=== PATIENT | female | born 1975 | race Caucasian/White ===

== ENCOUNTER → 2018-01-02 08:10 | Outpatient (CLI) | payer BC, SELFPAY ==
--- NOTE | 2018-01-02 09:00 | US_ITS ---
US transvaginal HISTORY: ITS.REASON: check IUD position/cysts due to abdominal/pelvic ORDERING PHYSICIAN: Jairo Galvan MD PATIENT AGE: 42 years Comparison: None FINDINGS: The uterus measures 10 x 4 x 5 cm with a combined endometrial thickness of 4 mm. IUD is noted in the endometrium and appears in satisfactory position. No obvious uterine mass. The left ovary is 1.6 x 1 cm and has an unremarkable appearance. The right ovary is 2.5 x 2.2 cm and contains a 2 cm cyst. No cul-de-sac fluid. IMPRESSION: 1. IUD within the endometrial cavity 2. 2 cm right ovarian cyst
== END ==
PROVIDERS: Family Provider Internal Medicine; PCP Family Medicine; Visit Provider Nurse Practitioner Obstetrics & Gynecology
DX: R10.2 Pelvic and perineal pain (principal); R10.9 Unspecified abdominal pain; Z97.5 Presence of (intrauterine) contraceptive device
CPT/HCPCS: 76830

== ENCOUNTER → 2018-05-10 10:08 | Outpatient (CLI) | payer BC, SELFPAY ==
[2018-05-10 10:52] LABS: Basophils % 0.4 % (0.1-2.0); Eosinophils # 0.3 K/mm3 (0.0-0.4); Eosinophils % 4.2 % (0.1-12.0); Hematocrit 45.5 % (37.0-47.0); Hemoglobin 14.9 g/dL (12.2-16.2); Lymphocytes # 2.9 K/mm3 (0.7-4.5); Lymphocytes % 40.1 % (10-50); Mean Corpuscular HGB Conc 32.7 g/dL (31.8-35.4); Mean Corpuscular Hemoglobin 29.2 pg (27.0-31.2); Mean Corpuscular Volume 89.4 fl (81-99); Mean Platelet Volume 7.6 fl (7.4-10.4); Monocytes # 0.3 K/mm3 (0.1-1.0); Monocytes % 4.2 % (1.7-9.3); Neutrophils # 3.7 K/mm3 (1.8-7.8); Neutrophils % 51.2 % (37.0-80.0); Platelet Count 256 K/mm3 (142-424); Red Blood Count 5.09 M/mm3 (4.20-5.40); Red Cell Distribution Width 12.9 % (11.5-17.5); White Blood Count 7.2 K/mm3 (4.8-10.8)
[2018-05-10 12:47] LABS: HCG Qualitative, Serum Negative (Negative)
[2018-05-10 12:49] LABS: Alanine Aminotransferase 31 U/L (12-78); Albumin Level 3.5 gm/dL (3.4-5.0); Albumin/Globulin Ratio 1.2 (1.1-1.8); Alkaline Phosphatase 79 U/L (46-116); Aspartate Amino Transferase 9 U/L (15-37); Bilirubin,Total 0.5 mg/dL (0.2-1.0); Blood Urea Nitrogen 15 mg/dL (7-18); Calcium 8.3 mg/dL (8.5-10.1); Carbon Dioxide 27 mmol/L (21.0-32.0); Chloride 103 mmol/L (98-107); Creatinine,Serum 0.46 mg/dL (0.55-1.02); Estimated Glomerular Filt Rate 148 ml/min (>60); GFR (African American) 179 ML/MIN (>60); Globulin 2.9 gm/dl (1.3-3.2); Glucose 205 mg/dL (74-106); Sodium 139 mmol/L (136-145); Total Protein,Serum 6.4 gm/dL (6.4-8.2)
== END ==
PROVIDERS: Visit Provider Obstetrics & Gynecology
DX: Z01.818 Encounter for other preprocedural examination (principal); R10.2 Pelvic and perineal pain
CPT/HCPCS: 36415; 80053; 84703; 85025; 86850

== ENCOUNTER 2018-05-13 07:00 | Inpatient (IN) ==
--- NOTE | 2018-05-13 08:06 | Progress Note ---
[facility] Anesthesia Checklist - Structural Data Admitted From: Home Planned Operative Procedure/s: [facility] Consent for Planned Operative Procedure(s) Verified: Yes Verified Documents: Surgical Consent - Airway Assessment C-Spine Mobility Assessed: Yes TMJ Mobility Assessed: Yes Dentition: Good Dentition - Neurological Assessment Level of Consciousness: Awake, Alert, Appropriate - Anesthesia Plan Anesthesia Risk discussed: Yes Anesthesia Plan: Verified ASA Class: II Anesthesia Type: General [facility] History I have reviewed the patient's past medical history: Yes Medical History: Reports:: Diabetes Mellitus Type 2 Denies:: Anxiety, Cancer, Depression, Diabetes Mellitus Type 1, Hyperlipidemia, Hypertension, Internal Pacemaker, MRSA, Seizures Other Medical History: Denies: Blood Transfusion Reaction Laterality Cases: Right: Arthroscopy Knee, Carpal Tunnel Release Other Surgeries: Yes: . No: Pacemaker Amputation: No Fractures: No - *Social History Educational Level: Attended College Smoking Status: Never smoker Alcohol Intake: never Alcohol Intake Frequency:: holidays/special occasions only Substance Use Type: denies use Occupational Status: unemployed Household Members: family - Psychiatric History Expresses thoughts of harming self/others: None Suicide Plan Description: No Plan Pschychiatric History:: Denies:: Anxiety, Depression *Family Hx:: Diabetes, Stroke
--- NOTE | 2018-05-13 13:17 | Operative Note ---
Date of procedure: 05/13/18 Pre-op Diagnosis:: 1. Chronic pelvic pain 2. Severe dysmenorrhea 3. Enlarged uterus 4. Ovarian cyst 5. Previous x 2 [address] Post-op Diagnosis:: 1. Chronic pelvic pain 2. Severe dysmenorrhea 3. Enlarged uterus 4. Previous x 2 [address] 6. Dense abdominal/pelvic adhesions Procedure performed:: 1. Abdominal supracervical hysterectomy 2. Bilateral salpingectomy 3. Lysis of dense adhesions Surgeon:: Nila Cheema MD MATH COACH:: Other Anesthesia: GETA Estimated blood loss (mL): 250 Operative findings:: Grossly normal appearing uterus and ovaries bilaterally Moderate dense pelvic/abdominal adhesions Operative note:: The patient was taken to the operating room and general anesthesia was administered without difficulty. She was prepped and draped in the supine position. A Pfannenstiel skin incision was made approximately 2 cm above the pubic symphysis with a scalpel and carried down to the underlying layer of fascia. The fascia was incised in the midline and extended laterally sharply. The rectus muscles were sharply dissected off the fascia. There was a moderate amount of dense adhesions noted in this region and this dissection took approximately 10 minutes; dissection was performed without complication or bowel injury. The peritoneum was turned and sharply, with good visualization of the underlying structures, providing additional confirmation that dissection of fascia had not resulted in injury to other structures. The peritoneal incision was extended bluntly. A survey of the patient's pelvis and abdomen revealed a moderate amount of dense and filmy pelvic adhesion, extending between the uterus/adnexa, adnexa/lateral sidewalls, the omentum/uterus and the bladder/uterus. The ovaries appeared normal bilaterally; previously visualized ovarian cyst on pelvic ultrasound had resolved in the interval time. Approximately 25 minutes of time was spent in blunt & sharp dissection of adhesions in order to mobilize the anatomy sufficiently to safely place an abdominal retractor. At this time, the patient was placed in Trendelenburg and a Cochise retractor was placed in the abdomen; the bowel was packed with moist laparotomy sponges. A double tooth tenaculum was placed on the uterine fundus and the uterus was elevated out of the pelvis. No fibroids or other visible uterine lesions were noted. The round ligaments were identified and transected and suture-ligated. The anterior lip of the broad ligament was dissected medially on both sides. Approximately 20 minutes of sharp and blunt dissection of vesico-uterine peritoneal adhesions resulting from the patient's 2 previous c-sections. This lysis of adhesions was completed without visible injury to the bladder, and with minimal oozing from the exposed surface tissue. The posterior leaf of the broad ligament was dissected until the ureters were able to be identified on either side and noted to be free of the forthcoming adnexal pedicles. Infundibulopelvic ligaments were doubly clamped transected and suture ligated on either side, medial to ovaries for ovarian preservation, with excellent hemostasis noted. The fallopian tubes on either side were clamped transected and suture ligated and the specimens were set aside for pathology. The uterine arteries were skeletonized on either side, and were clamped, transected and suture ligated with excellent hemostasis. The bladder flap was further bluntly dissected off the lower uterine segment with excellent hemostasis and without injury to the bladder. The cardinal and uterosacral ligaments were clamped transected and suture ligated on both sides; this was taken down sequentially with 3 additional bites but due to thick adhesions deep in the pelvis and a concern for potential ureteral injury, a decision was made to proceed with amputation of the uterus and upper cervix at that level, after confirming a negative cervical cytology specimen had been obtained 2 months earlier. The uterus and upper cervix were removed abdominally and sent for pathology, along with the fallopian tubes. The string of the levonorgestrel IUD was visualized prolapsing from the excised surface of the cervix and was sent to pathology within the uterus. The cervical stump was oversewn with 0-Vicryl [id number] sutures and the lateral edges were transfixed to the ipsilateral cardinal and uterosacral ligaments. The remainder of the vaginal cuff was closed with 0 Vicryl interrupted sutures. The pelvis was copiously irrigated with warmed sterile water. The cervical stump and all pedicles was hemostatic. All pedicles were reexamined and remained hemostatic. All instruments were removed from the patient's abdomen. The peritoneum was closed with 2-0 Vicryl in a running fashion. Edenilson was placed over the bladder mucosa for oozing from the dissection of adhesions to the uterus. The fascia was closed with 0 Vicryl in a running fashion. The subcutaneous fat was reapproximated wtih 2-0 vicryl in interrupted fashion. The skin was closed with toy. The patient tolerat ed the procedure well; sponge/lap/needle and instrument counts were correct 2. She was taken to the recovery room awake in stable condition. Estimated blood loss: 250 cc. Total time spent in lysis of adhesions: 50 minutes Condition: stable Disposition: PACU Complications:: none
--- NOTE | 2018-05-13 13:37 | Progress Note ---
[facility] Anesthesia Record Part I Intake, IV Amount: 2,000 Estimated blood loss (mL): 250 Urine output (mL): 100 Blood Products used (#): none Blood Pressure: 86/44 SaO2: 96 Pulse Rate: 106 Respiratory Rate: 13 Temperature: 97.9 F Patient is:: Awake, Nasal O2, Stable Stable to PACU at:: 13:28
--- NOTE | 2018-05-13 13:38 | Progress Note ---
[facility] Anesthesia Record Part II Discharge Time: 13:58 Destination: Medical Surgical Department PACU nurse assessment reviewed?: Yes Patient Condition:: Good Anesthesia Complications:: None
[2018-05-14 06:22] LABS: Hematocrit 35.6 % (37.0-47.0); Hemoglobin 11.7 g/dL (12.2-16.2)
--- NOTE | 2018-05-14 10:46 | Pharmacy Consult Notes ---
[facility] Pharmacy VTE Monitoring - Patient Demographics Admission date: 05/14/18 Report Date: 05/14/18 Time: 10:40 Allergies/Adverse Reactions: Patient Allergies No Known Allergies Allergy (Unverified 05/13/18 13:35) Height: 1.68 m Weight: 86.183 kg - VTE Risk Labs: VTE Related Lab Results Hgb 11.7 g/dL (12.2-16.2) L 05/14/18 05:45 Hct 35.6 % (37.0-47.0) L 05/14/18 05:45 - Prophylaxis Types of VTE Prophylaxis: IPCS Knee High (SCUDS ORDERED) Location of Applied Device: Bilateral Lower Extremeties
--- NOTE | 2018-05-14 12:47 | Progress Note ---
Internal Medicine - PN: Subj *Date: 05/14/18 *Time: 12:43 Interval history: POD #1 abdominal supracervical hysterectomy, bilateral salpingectomy, JAYRO Doing well this am Ambulating and voiding without difficulty Tolerating clear liquid diet + flatus Poorly controlled insulin-dependent DM managed with Lantis, Victosa and prn Humalog at home Covering with SS insulin while admitted because patient does not follow the regimen prescribed to her at home Postop anemia asymptomatic; Hgb 14.9 at admission and 11.7 today (appropriate for intra-op EBL) Pain control sufficient with toradol and TAP block; has po percocet ordered but has declined this so far One dose of IV morphine given last pm Exam Vital signs and Labs for Last 24 Hours: Temp Pulse Resp BP Pulse Ox 98.4 F 76 20 100/49 L 96 05/14/18 08:29 05/14/18 08:29 05/14/18 08:29 05/14/18 08:29 05/14/18 08:29 Laboratory Results - last 24 hr 05/13/18 09:35: Urine Color Yellow, Urine Appearance Slightly cloudy, Urine pH 5.5, Ur Specific [place] >= 1.030, Urine Protein Negative, Urine Glucose (UA) Negative, Urine Ketones Negative, Urine Blood 3+, Urine Nitrate Positive, Urine Bilirubin Negative, Urine Urobilinogen 0.2, Ur Leukocyte Esterase 1+ A, Urine RBC 5-10, Urine WBC 3-5, Ur Squamous Epith Cells Occasional, Urine Bacteria 1+ 05/13/18 13:40: POC Glucose 211 H 05/13/18 14:15: POC Glucose 207 H 05/13/18 16:38: POC Glucose 235 H 05/13/18 21:37: POC Glucose 241 H 05/14/18 05:45: Hgb 11.7 L, Hct 35.6 L 05/14/18 05:45: Random Glucose 246 H 05/14/18 11:37: POC Glucose 311 H* I & O for Last 24 hours: Intake & Output 05/12/18 05/13/18 05/14/18 05/15/18 11:59 11:59 11:59 11:59 Intake Total 4440 / 4440 Output Total 1150 / 1150 Balance 3290 / 3290 Weight 190 lb Microbiology Reports for the Last 24 Hours: Microbiology 05/13/18 09:35 Urine,Catheterized Urine Culture - Preliminary Gram Negative Rods Narrative: CONSTITUTIONAL: no acute distress HEENT: mucous membranes moist PULMONARY: breathing unlabored without audible wheezes CV: no tachycardia or visible JVD; normal LE peripheral pulses ABD: soft, appropriately tender; no guarding SKIN: no visible rash or lesions; incision dressing dry/intact EXT: no edema LEs NEURO: alert/oriented, no altered mental status PSYCH: appropriate mood and demeanor without visible anxiety/depression Assessment and Plan (1) S/P abdominal supracervical subtotal hysterectomy Current visit: Yes Status: Acute Category: Surgical Code(s): Z90.711 - Acquired absence of uterus with remaining cervical stump (2) Pelvic pain Current visit: No Status: Acute Category: Medical Code(s): R10.2 - Pelvic and perineal pain (3) Severe dysmenorrhea Current visit: No Status: Acute Category: Medical Code(s): N94.6 - Dysmenorrhea, unspecified (4) Enlarged uterus Problem details: 10x4x5 Current visit: No Status: Acute Category: Medical Code(s): N85.2 - Hypertrophy of uterus (5) Ovarian cyst Current visit: No Status: Acute Qualifiers: Laterality: right Qualified Code(s): N83.201 - Unspecified ovarian cyst, right side Category: Medical Code(s): N83.209 - Unspecified ovarian cyst, unspecified side (6) Previous section Problem details: x1 Current visit: No Status: Acute Category: Surgical Code(s): Z98.891 - History of uterine scar from previous surgery (7) Pelvic adhesions Current visit: Yes Status: Acute Category: Medical Code(s): N73.6 - Female pelvic peritoneal adhesions (postinfective) (8) Diabetes mellitus with insulin therapy Current visit: Yes Status: Acute Category: Medical Code(s): E11.9 - Type 2 diabetes mellitus without complications; Z79.4 - skilled nursing (current) use of insulin (9) Anemia associated with acute blood loss Current visit: Yes Status: Acute Category: Medical Code(s): D62 - Acute posthemorrhagic anemia - Assessment and plan all Dx Assessment and Plan for all problems:: Routine postop care Advance to regular (diabetic) diet, po pain meds Continue SS insulin coverage for DM Asymptomatic mild anemia- no intervention needed Anticipate discharge tomorrow
--- NOTE | 2018-05-15 12:13 | Discharge Summary ---
General - General Admission date:: 05/13/18 Discharge date: 05/15/18 [facility] HPI: Admitted for surgical management of chronic pelvic pain with hysterectomy Postop course routine; progressed to ambulating, voiding and tolerating diet BS has been managed with SS insulin postop because patient does not follow set dosing of insulin as prescribed when she is home Hospital Course Hospital Course: as documented in HPI Objective Vital signs: Temp Pulse Resp BP Pulse Ox 98.0 F 86 16 87/46 L 94 L 05/15/18 08:37 05/15/18 08:37 05/15/18 08:37 05/15/18 08:37 05/15/18 08:37 Narrative: CONSTITUTIONAL: no acute distress HEENT: mucous membranes moist PULMONARY: breathing unlabored without audible wheezes CV: no tachycardia or visible JVD; normal LE peripheral pulses ABD: soft, NT/ND, no guarding SKIN: no visible rash or lesions; incision dry/intact EXT: 1+ edema LEs NEURO: alert/oriented, no altered mental status PSYCH: appropriate mood and demeanor without visible anxiety/depression Results Labs on day of discharge: Labs from last 24 hours 05/15/18 05/14/18 07:59 21:24 POC Glucose 296 H 332 H* DS: Diagnosis - Discharge Diagnosis (1) S/P abdominal supracervical subtotal hysterectomy Status: Acute (2) Pelvic pain Status: Acute (3) Severe dysmenorrhea Status: Acute (4) Enlarged uterus Status: Acute Problem details: 10x4x5 (5) Ovarian cyst Status: Acute (6) Previous section Status: Acute Problem details: x1 (7) Pelvic adhesions Status: Acute (8) Diabetes mellitus with insulin therapy Status: Acute (9) Anemia associated with acute blood loss Status: Acute Discharge Plan - Patient Discharge Instructions ACTIVITY: Limited activity DIET: advance to your usual diet Patient Instructions: Hysterectomy -- Open Surgery, Web-Based Program May Help Improve Diabetes Management, DI for Surgical Site Infection - Follow up Plan Follow up with: Nila Cheema MD [Staff Physician] - Disposition: Home, Self-Group Home Medications: Home Medications Medication Instructions Recorded Confirmed Type cetirizine 10 mg tablet 10 mg PO DAILY 02/04/18 05/13/18 History fluconazole 100 mg tablet 100 mg PO DAILY 7 Days #7 tab 02/04/18 05/13/18 History insulin glargine (U-100) 100 100 unit SUB-Q DAILY 30 Days #30 02/04/18 05/13/18 History unit/mL (3 mL) subcutaneous pen insulin lispro (U- 100) 100 100 units SUB-Q DAILY 25 Days #15 02/04/18 05/13/18 History unit/mL subcutaneous pen levonorgestrel 20 mcg/24 hr (5 20 mcg INTRAUTERI DAILY 02/04/18 05/13/18 History years) intrauterine device pen needle, diabetic 31 gauge x See Dose Instructions .ROUTE 02/04/18 05/13/18 History 11/07" .MEDSUPPLY 25 Days #100 each ranitidine 300 mg tablet 300 mg PO DAILY 30 Days #30 tab 02/04/18 05/13/18 History Linaclotide [Linzess] 145 mcg PO DAILY 05/10/18 05/13/18 History Prescriptions/Medication Reconciliation: New Ketorolac Tromethamine [Toradol 10mg tablet] 10 mg PO Q6H #30 tablet Oxycodone HCl [OxyIR 5mg tablet] 5 mg PO Q4HP PRN #30 tab PRN Reason: Severe Pain Continue pen needle, diabetic 31 gauge x 11/07" See Dose Instructions .ROUTE .MEDSUPPLY 25 Days #100 each insulin lispro (U- 100) 100 unit/mL subcutaneous pen 100 units SUB-Q DAILY 25 Days #15 ranitidine 300 mg tablet 300 mg PO DAILY 30 Days #30 tab cetirizine 10 mg tablet 10 mg PO DAILY insulin glargine (U-100) 100 unit/mL (3 mL) subcutaneous pen 100 unit SUB-Q DAILY 30 Days #30 fluconazole 100 mg tablet 100 mg PO DAILY 7 Days #7 tab Linaclotide [Linzess] 145 mcg PO DAILY Discontinued levonorgestrel 20 mcg/24 hr (5 years) intrauterine device 20 mcg INTRAUTERI DAILY
== END 2018-05-15 13:45 | disposition home or self-care (01) ==
LOC: OR 07:00 → OB 14:43
PROVIDERS: ADMIT Obstetrics & Gynecology; ATTEND Obstetrics & Gynecology
CPT/HCPCS: J2405

== ENCOUNTER → 2019-04-15 10:40 | Outpatient (CLI) | payer BC, SELFPAY | PROVIDERS: Visit Provider Obstetrics & Gynecology | DX: R39.89 Other symptoms and signs involving the genitourinary system (principal) ==

== ENCOUNTER → 2020-04-06 08:34 | Outpatient (CLI) | payer BC, SELFPAY ==
--- NOTE | 2020-04-06 09:09 | US_ITS ---
PROCEDURE: US ABDOMEN LIMITED CLINICAL INDICATION: ABD PAIN Epigastric pain with nausea COMPARISON: US GB US GALLBLADDER (ABD LTD) from 09/22/2014 FINDINGS: PANCREAS: Unremarkable. No obvious mass or abnormal fluid collection. No ductal dilatation LIVER: No focal liver lesions demonstrated. Homogeneous echogenicity. No intrahepatic biliary ductal dilatation evident. There is appropriate direction of blood flow within a non dilated portal vein RIGHT KIDNEY: Unremarkable. Normal size and echogenicity. No hydronephrosis GALLBLADDER: There are multiple gallstones present. No gallbladder wall thickening, pericholecystic fluid, or biliary dilatation is evident. IMPRESSION: Cholelithiasis otherwise negative. Dictated by: Hao Jasso MD 04/06/2020 12:47 Hao Jasso MD in [place] 04/06/2020 12:47
== END ==
PROVIDERS: PCP Family Medicine; Visit Provider Surgery
DX: R10.11 Right upper quadrant pain (principal)
CPT/HCPCS: 76705

== ENCOUNTER 2020-04-30 01:08 | Observation (INO) | payer BC, SELFPAY ==
[2020-04-30] VITALS (30 sets, daily range): BP systolic 86–146; BP diastolic 45–98; PULSE 60–98; RESP 12–18; TEMP 36.5–43; O2SAT 92–100; BMI 26.6; BMI 26.5; BMI 26.9
--- NOTE | 2020-04-30 01:18 | CT_ITS ---
PROCEDURE: CT ABDOMEN PELVIS W CON CLINICAL INDICATION: mid epigastric pain radiating to middle back COMPARISON: CT ABDPELW/O CT ABD PELVIS W/O CONTRAST from 04/24/2013 TECHNIQUE: IV Contrast: 75ML Isovue 370 Oral Contrast None Axial images obtained with sagittal and coronal reformats. All CT scans at the facility use one or more dose reduction, viz: automated exposure control, ma/kV adjustment per patient size (including targeted exams where dose is matched to indication, i.e. head), or iterative reconstruction technique. FINDINGS: LOWER THORAX: No acute finding ABDOMEN & PELVIS: The gallbladder slightly distended with small stones. The liver, spleen, adrenal glands, pancreas, and kidneys have an unremarkable appearance. No renal or ureteral calculi. No hydronephrosis. No intestinal obstruction or free air. No evidence of appendicitis. Prior hysterectomy. There is an oval collection in the left lower quadrant left pelvic region measuring 4.8 by 2.5 cm not readily apparent on the previous exam. While this could represent an atypical unopacified loop of small bowel, 1 cannot exclude the possibility of a fluid collection such as an abscess or seroma. The left ovary is also consideration. The patient has had interval hysterectomy. Please correlate with surgical history. Repeat CT scan with IV and adequate oral contrast may provide further evaluation. No acute bony anomalies are evident. IMPRESSION: 1. Cholelithiasis. 2. 4.8 x 2.5 cm oval density in the left pelvic region anteriorly which could represent residual ovarian tissue/cyst, unopacified bowel, or abscess/seroma. Follow-up CT with IV and adequate oral contrast may provide further evaluation. Dictated by: Hao Jasso MD 04/30/2020 05:37 Hao Jasso MD in [facility] 04/30/2020 05:37
[2020-04-30 01:34] LABS: Microscopic, Urine URINE MICROSCOPIC (MICROSCOPIC)
[2020-04-30 01:36] LABS: Appearance,Urine CLEAR (Clear); Bilirubin,Urine Negative (Negative); Blood, Urine 1+ (Negative); Color,Urine YELLOW (Yellow); Glucose,Urine (UA) 3+ (Negative); Ketones,Urine Negative (Negative); Leukocyte Esterase,Urine Negative (Negative); Nitrate,Urine Negative (Negative); Protein,Urine Negative (Negative); Urobilinogen,Urine 0.2 EU/dl (0.2)
[2020-04-30 01:37] LABS: Basophils % 0.4 % (0.1-2.0); Eosinophils # 0.1 K/mm3 (0.0-0.4); Eosinophils % 1.4 % (0.1-12.0); Hematocrit 51.2 % (37.0-47.0); Hemoglobin 16.7 g/dL (12.2-16.2); Lymphocytes % 31.4 % (10-50); Mean Corpuscular HGB Conc 32.7 g/dL (31.8-35.4); Mean Corpuscular Hemoglobin 30.2 pg (27.0-31.2); Mean Corpuscular Volume 92.5 fl (81-99); Mean Platelet Volume 8.3 fl (7.4-10.4); Monocytes # 0.5 K/mm3 (0.1-1.0); Monocytes % 4.9 % (1.7-9.3); Platelet Count 237 K/mm3 (142-424); Red Blood Count 5.53 M/mm3 (4.20-5.40); Red Cell Distribution Width 12.8 % (11.5-17.5); White Blood Count 9.7 K/mm3 (4.8-10.8)
[2020-04-30 01:44] LABS: Alanine Aminotransferase 114 U/L (12-78); Albumin Level 4.2 g/dl (3.5-5.0); Albumin/Globulin Ratio 1.5 (1.1-1.8); Alkaline Phosphatase 134 U/L (38-126); Anion Gap 11.8 mEq/L (5-15); Aspartate Amino Transferase 226 U/L (14-36); Bilirubin,Total 1.4 mg/dl (0.2-1.3); Blood Urea Nitrogen 15 mg/dl (7-17); Calcium 9.6 mg/dl (8.4-10.2); Carbon Dioxide 29 mmol/L (22.0-30.0); Chloride 99 mmol/L (98-107); Creatinine Clearance Estimated 151 mL/min (50-200); Estimated Glomerular Filt Rate 133 ml/min (>60); GFR (African American) 161 ML/MIN (>60); Globulin 2.8 g/dL (1.3-3.2); Glucose 395 mg/dl (74-100); Lipase 128 U/L (23-300); Potassium 3.8 mmoL/L (3.5-5.1); Sodium 136 mmol/L (136-145)
[2020-04-30 01:49] LABS: C-Reactive Protein 11.9 mg/L (0-4)
--- NOTE | 2020-04-30 01:50 | PC.NURSE ---
pt to ct
[2020-04-30 02:02] LABS: Bacteria,Urine 1+ /lpf; Mucus,Urine 1+ /lpf
--- NOTE | 2020-04-30 02:13 | PC.NURSE ---
pt returns from ct
[2020-04-30 02:21] LABS: Erythrocyte Sedimentation Rate 18 mm/hr (0-20)
[2020-04-30 02:45] LABS: Coronavirus 19 IgG Antibody Negative (Negative); Coronavirus 19 IgM Antibody Negative (Negative)
--- NOTE | 2020-04-30 03:27 | HMH.EDNVD ---
ED Disposition Clinical Impression: Cholangitis, Diabetes mellitus with insulin therapy, Transaminitis Disposition: Admitted As Inpatient Condition on Discharge: Good Instructions: DI for Acute Abdomen Referrals: Ravi Izquierdo MD [Primary Care Provider] - - Critical Care Critical Care Time: No Attestation: On 04/30/20, the high probability of a clinically significant, sudden or life threatening deterioration of the following system(s) required my full and direct attention, intervention and personal management. The time I documented below is in addition to time spent performing reported procedures but includes the following listed in this critical care notation. Medical Decision Making - Medical Records Medical records reviewed: Yes: I reviewed the patient's medical records. - Mark Inquiry Pt receiving controlled substance: No Vital Signs: 04/30/20 01:18 Temperature 97.7 F Temperature Source Oral Pulse Rate [Right Brachial] 98 H Respiratory Rate 18 Blood Pressure [Right Arm] 133/88 Blood Pressure Mean [Right Arm] 103 Blood Pressure Source [Right Arm] Automatic Cuff Blood Pressure Position [Right Arm] Sitting 02 Sat by Pulse Oximetry 98 Oxygen Delivery Method Room Air - Lab Data Lab results reviewed: Yes: I reviewed the patient's lab results. Lab Results 04/30/20 01:25: WBC 9.7, RBC 5.53 H, Hgb 16.7 H, Hct 51.2 H, MCV 92.5, MCH 30.2, MCHC 32.7, RDW 12.8, Plt Count 237, MPV 8.3, Neut % (Auto) 62.0, Lymph % (Auto) 31.4, [place] % (Auto) 4.9, Eos % (Auto) 1.4, Baso % (Auto) 0.4, Neut # (Auto) 6.0, Lymph # (Auto) 3.0, [place] # (Auto) 0.5, Eos # (Auto) 0.1, Baso # (Auto) 0.0, ESR 18 04/30/20 01:25: Sodium 136, Potassium 3.8, Chloride 99, Carbon Dioxide 29, Anion Gap 11.8, BUN 15, Creatinine 0.50 L, Estimated Creat Clear 151, Estimated GFR 133, Est GFR ( Amer) 161, Glucose 395 H, Calcium 9.6, Total Bilirubin 1.4 H, AST 226 H, ALT 114 H, Alkaline Phosphatase 134 H, C-Reactive Protein 11.9 H, Total Protein 7.0, Albumin 4.2, Globulin 2.8, Albumin/Globulin Ratio 1.5, Lipase 128 04/30/20 01:25: Urine Color Yellow, Urine Appearance Clear, Urine pH 7.0, Ur Specific [place] 1.010, Urine Protein Negative, Urine Glucose (UA) 3+, Urine Ketones Negative, Urine Blood 1+, Urine Nitrate Negative, Urine Bilirubin Negative, Urine Urobilinogen 0.2, Ur Leukocyte Esterase Negative, Urine RBC 5-10, Urine WBC 3-5, Ur Squamous Epith Cells 10-20, Urine Bacteria 1+, Urine Mucus 1+ 04/30/20 01:25: SARS-CoV-2 IgG Ab (Rapid) Negative, SARS-CoV-2 IgM Ab (Rapid) Negative Result diagrams: 04/30/20 01:25 04/30/20 01:25 Orders (Tests/Meds): ED MEDICATIONS Generic Name Dose Route Start Last Admin Trade Name Dimaq PRN Reason Stop Dose Admin Sodium Chloride 1,000 mls @ 999 mls/hr 04/30/20 01:30 04/30/20 01:25 Sod Chlor 0.9% 1000ml Bag IV 04/30/20 02:30 999 mls/hr .Q1H1M KELLE Administration Sodium Chloride 8 ml 04/30/20 01:21 Sodium Chloride 0.9% 10ml Vial IV 05/30/20 01:20 NEEDED PRN dilute pepcid Discontinued Medications Generic Name Dose Route Start Last Admin Trade Name Freq PRN Reason Stop Dose Admin Famotidine 20 mg 04/30/20 01:21 04/30/20 01:25 Famotidine 20mg/2ml Vial IV 04/30/20 01:22 20 mg ONCE ONE Administration Iopamidol 75 ml 04/30/20 02:37 04/30/20 02:38 Iopamidol-370 (76%);100ml Bottle IV 04/30/20 02:38 75 ml ONCE ONE Administration Ketorolac Tromethamine 30 mg 04/30/20 01:21 04/30/20 01:25 Ketorolac 30mg/Ml Vial IV 04/30/20 01:22 30 mg ONCE ONE Administration Metoclopramide HCl 10 mg 04/30/20 01:21 04/30/20 01:25 Metoclopramide Hcl 10mg/2ml Vial IVP 04/30/20 01:22 10 mg ONCE ONE Administration Ondansetron HCl 4 mg 04/30/20 01:21 04/30/20 01:25 Ondansetron 4mg/2ml Vial IV 04/30/20 01:22 4 mg ONCE ONE Administration Sodium Chloride 10 ml 04/30/20 02:37 04/30/20 02:38 Sodium Chloride 0.9% 10ml Syr (Rad Only) IV
--- NOTE | 2020-04-30 03:34 | PC.NURSE ---
paged on-call for dr vega
--- NOTE | 2020-04-30 03:37 | PC.NURSE ---
speaking with Dr. Barker for admission
--- NOTE | 2020-04-30 03:39 | PC.NURSE ---
call placed to house for bed assignment. spoke with benson wakefield. acute cholangitis gary to gary. at bedside informing patient of plan of care
--- NOTE | 2020-04-30 03:47 | PC.NURSE ---
Patient assigned t0 [id number].
--- NOTE | 2020-04-30 04:45 | PC.NURSE ---
patient up to floor via wheelchair
[2020-04-30 06:38] LABS: POC Glucose,Bedside 365 (70-110)
--- NOTE | 2020-04-30 07:08 | PC.NURSE ---
Paged Dr. Altman to notify him of consult.
--- NOTE | 2020-04-30 07:13 | PC.NURSE ---
Dr. Altman notified
--- NOTE | 2020-04-30 07:33 | HMH.PHAVTE ---
[facility] Pharmacy VTE Monitoring - Patient Demographics Admission date: 04/30/20 Report Date: 04/30/20 Time: 07:33 Allergies/Adverse Reactions: Patient Allergies No Known Allergies Allergy (Verified 04/30/20 04:49) Height: 1.7 m Weight: 78.018 kg Patient Problems: Current Active Problems Cholangitis (Acute) Transaminitis (Acute) Diabetes mellitus with insulin therapy (Acute) - VTE Risk Labs: VTE Related Lab Results Hgb 16.7 g/dL (12.2-16.2) H 04/30/20 01:25 Hct 51.2 % (37.0-47.0) H 04/30/20 01:25 Plt Count 237 K/mm3 (142-424) 04/30/20 01:25 BUN 15 mg/dl (7-17) 04/30/20 01:25 Creatinine 0.50 mg/dl (0.52-1.04) L 04/30/20 01:25 Estimated Creat Clear 151 mL/min (50-200) 04/30/20 01:25 Was VTE Risk Assessment Performed: Yes VTE Score: 3 VTE Risk Level: Low Risk - Prophylaxis VTE Prophylaxis Ordered?: Yes Types of VTE Prophylaxis: TEDS Knee High Location of Applied Device: Bilateral Lower Extremeties
--- NOTE | 2020-04-30 08:29 | HMH.HP ---
*Admission Date: 04/30/20 <Louise Savage 04/30/20 08:44> *Chief complaint: Cholelithiasis <Hussein,Louise - 04/30/20 08:44> *History of present illness: Ms. Nicolas is a 45yo white female with history of DM managed by endocrinology and GERD. She has been diagnosed with gallstones and describes four or five prior episodes of acute abdominal pain this year, with cholecystectomy scheduled for 06/09/2020. She reports having a severe episode of abdominal pain and nausea 6 days ago for which she was seen at [facility] ED and discharged home when symptoms improved with treatment. She reports she has since been eating as little as possible in order to avoid further episodes. She reports starting with increased abdominal pain yesterday evening around 8pm, accompanied by intense nausea without vomiting. When her pain did not improve after several hours, she came to the ED for treatment. Upon arrival, her glucose was elevated at 365. Liver functions were elevated with bilirubin 1.4, AST 226, ALT 114, Alk Phos 134. She was admitted for pain control and surgical consultation was ordered. This morning, she is feeling better. She currently denies pain. She is tolerating ice chips well and reports she only becomes nauseated when pain is severe. <Andrew Savage04/30/20 08:44> [facility] History Medical History: Reports:: Diabetes Mellitus Type 2, Gastroesophageal Reflux Disease(GERD) Denies:: Anxiety, Cancer, Depression, Diabetes Mellitus Type 1, Hyperlipidemia, Hypertension, Internal Pacemaker, MRSA, Seizures <HusseinLouise - 04/30/20 08:51> *Have you ever received a pneumonia vaccine?: No <Andrew Savage04/30/20 08:44> *Have you received a flu vaccine this season?: No <Andrew Savage04/30/20 08:44> Other Medical History: Denies: Blood Transfusion Reaction <Andrew Savage04/30/20 08:44> Laterality Cases: Right: Arthroscopy Knee, Carpal Tunnel Release <HusseinLouise - 04/30/20 08:44> Other Surgeries: Yes: , Hysterectomy-Total, Hysterectomy-Partial. No: Pacemaker <Louise Savage 04/30/20 08:44> Amputation: No <Hussein,Louise - 04/30/20 08:44> Fractures: No <Andrew Savgae04/30/20 08:44> - *Social History Last grade of school completed: Some college <Louise Savage 04/30/20 08:44> Smoking Status: Never smoker <Louise Savage 04/30/20 08:44> Alcohol Intake: current <Louise Savage 04/30/20 08:44> Alcohol Intake Frequency:: a few times a week <Louise Savage 04/30/20 08:44> Substance Use Type: denies use <Louise Savage 04/30/20 08:44> *Occupational Status:: unemployed <Louise Savage 04/30/20 08:44> Household Members: spouse <Louise Savage 04/30/20 08:44> *Travel in the last 8 weeks: Inside the [place] <Louise Savage 04/30/20 08:44> - Psychiatric History Pschychiatric History:: Denies:: Anxiety, Depression <Louise Savage 04/30/20 08:44> Family Hx:: No significant family history <Andrew Savage04/30/20 08:44> Review of Systems - Constitutional Denies body ache(s), Denies chills, Denies fatigue, Denies fever(s), Denies headache(s), Denies increased appetite, Denies weakness <Andrew Savage04/30/20 08:51> - Eyes Denies change in vision <Andrew Savage04/30/20 08:51> - ENT Denies dizziness, Denies headache(s), Denies nasal congestion, Denies nasal discharge, Denies sinus pressure, Denies sore throat <Andrew Savage04/30/20 08:51> - *Cardiovascular Denies chest pain, Denies shortness of breath, Denies leg swelling <Andrew Savage04/30/20 08:51> - *Respiratory Denies chest congestion, Denies cough, Denies shortness of breath <Andrew Savage04/30/20 08:51> - *Gastrointestinal Reports abdominal pain, Reports bloating, Reports heartburn, Reports heartburn, Reports nausea, Denies change in bowel habits, Denies loose stools, Denies vomiting <Louise Savage 04/30/20 08:51> - *Genitourinary Denies difficulty urinating <Louise Savage 04/30/20 08:51> - *Musculoskeletal Denies muscle weakness <Louise Savage 04/30/20 08:51> - *Neurologic Denies dizziness, Pool
[2020-04-30 12:13] LABS: POC Glucose,Bedside 205 (70-110)
--- NOTE | 2020-04-30 12:25 | HMH.PHAINT ---
MEDICATION RECONCILIATION COMPLETED ON PATIENT USING EXTERNAL FILL HISTORY FROM PHARMACY AND LIST FROM [facility] OFFICE. -SALAS SALASD
--- NOTE | 2020-04-30 14:32 | HMH.ANESCL ---
[facility] Anesthesia Checklist - Patient Identification Patient Identification: Arm Band, Verbal (Name & ) - Structural Data Admitted From: Inpatient Planned Operative Procedure/s: lap choly Consent for Planned Operative Procedure(s) Verified: Yes Verified Documents: History and Physical - NPO Status Verified Time NPO: 00:00 - Chart Verification Results Verified: CBC, BMP - Additional verifications Patient : No Anesthesia Reactions: No Hx Blood Transfusions: No Blood Transfusion Reaction: No Cephalosporin Allergy: No Previous Colonoscopy: No - Cardiovascular Assessment Heart Sounds: S1 & S2 Pulse Strength: Baseline Pulse Rhythm: Regular Peripheral Edema: No - Airway Assessment C-Spine Mobility Assessed: Yes TMJ Mobility Assessed: Yes Dentition: Good Dentition - Neurological Assessment Level of Consciousness: Awake, Alert, Appropriate Hx Seizures: No Numbness or tingling in extremities: No - Anesthesia Plan Anesthesia Risk discussed: Yes Anesthesia Plan: Verified ASA Class: II Anesthesia Type: General [facility] History I have reviewed the patient's past medical history: Yes Medical History: Reports:: Diabetes Mellitus Type 2, Gastroesophageal Reflux Disease(GERD) Denies:: Anxiety, Cancer, Depression, Diabetes Mellitus Type 1, Hyperlipidemia, Hypertension, Internal Pacemaker, MRSA, Seizures *Have you ever received a pneumonia vaccine?: No *Have you received a flu vaccine this season?: No Other Medical History: Denies: Blood Transfusion Reaction Anesthesia experience/problems:: none Laterality Cases: Right: Arthroscopy Knee, Carpal Tunnel Release Other Surgeries: Yes: , Hysterectomy-Total, Hysterectomy-Partial. No: Pacemaker Amputation: No Fractures: No - *Social History Last grade of school completed: Some college Smoking Status: Never smoker Alcohol Intake: current Alcohol Intake Frequency:: a few times a week Substance Use Type: denies use *Occupational Status:: unemployed Household Members: spouse *Travel in the last 8 weeks: Inside the [place] - Psychiatric History Pschychiatric History:: Denies:: Anxiety, Depression Family Hx:: No significant family history
[2020-04-30 14:46] LABS: Bilirubin,Unconjugated 0.7 mg/dL (0.0-1.1)
[2020-04-30 14:47] LABS: Alanine Aminotransferase 351 U/L (12-78); Albumin Level 3.6 g/dl (3.5-5.0); Alkaline Phosphatase 113 U/L (38-126); Aspartate Amino Transferase 449 U/L (14-36); Bilirubin,Direct 0.2 mg/dl (0.0-0.4); Bilirubin,Indirect 0.7 mg/dL (0.0-0.9); Bilirubin,Total 0.9 mg/dl (0.2-1.3); Total Protein,Serum 6.2 g/dl (6.3-8.2)
[2020-04-30 15:36] LABS: Hemoglobin A1C 10.9 % (4.0-6.0)
--- NOTE | 2020-04-30 16:09 | FL_ITS ---
PROCEDURE: FLUORO UP TO 1 HOUR CLINICAL INDICATION: CHOLANGIOGRAM COMPARISON: No exams were available for comparison FINDINGS: Fluoro time 0.8 minutes. Single image submitted shows good opacification of the common bile duct cystic duct with flow contrast into the duodenum. No obstructing lesions are evident. There is questionable minimal filling defect at the distal CBD medially versus artifact from the overlying catheter. Please correlate with fluoroscopic findings. IMPRESSION: No definite common duct stones. Please see above for detail Dictated by: Hao Jasso MD 04/30/2020 16:15 Hao Jasso MD in OV 04/30/2020 16:15
--- NOTE | 2020-04-30 16:38 | HMH.OPNOTE ---
Date of procedure: 04/30/20 Pre-op Diagnosis:: Cholecystitis Post-op Diagnosis:: Same Procedure performed:: Laparoscopic cholecystectomy with intraoperative cholangiogram Surgeon:: Eleuterio Altman MD FUR MATCHER:: John Mchugh Anesthesia: GETAlicia Estimated blood loss (mL): 15 Clinical Note:: Patient is a 45-year-old female I had seen in the office on 04/05/2020 as a consultation referred by Dr. Izquierdo for gallbladder . Patient does extensive traveling for prolonged periods of time for her work. She states that over the past several months she has had several episodes of symptoms consistent with possible biliary colic. These often occur spontaneously and not necessarily postprandially. She describes severe epigastric and substernal pain radiating through to her back. She has had some associated nausea but no vomiting. Symptoms often last for a couple of hours or so. When she was seen to the office on 04/05/2020 I did obtain a gallbladder ultrasound and this reveals multiple gallstones. Due to the patient's work and travel requirements she requested delay in surgery and was scheduled for laparoscopic with possibly open cholecystectomy on 06/09/2020. Patient states that last weekend she had another episode consistent with biliary colic and was likely driving to the emergency department when her symptoms resolved. Overnight she had another attack requiring presenting to the emergency department early this morning. She was found to have some elevation of her liver function tests and was admitted for inpatient management. Operative findings:: She had a significantly distended gallbladder with multiple small gallstones. She had fatty infiltration the liver. Cholangiogram revealed initially possible stone but with flushing this was able to be cleared and follow-up cholangiogram revealed no defect obvious or obstruction. Operative note:: Patient was taken to the operating room. She was given preoperative intravenous antibiotics. In the operating room she was placed in a supine position. General anesthesia was induced via endotracheal tube. Abdomen was prepped and draped in the standard surgical fashion. Due to the patient's low midline scar Veress needle was inserted in the left subcostal area through 1 mm incision. CO2 pneumoperitoneum was achieved to 15 mmHg. 11 mm optical trocar was inserted at the umbilicus. Intraperitoneal contents were visualized. She was positioned in reverse Trendelenburg and left side down. A couple 5 mm trochars were inserted in the right upper abdomen. 10 mm trocar was inserted in the epigastrium. Gallbladder was identified grasped retracted anteriorly and superiorly over the dome of the liver. There were some omental adhesions to the gallbladder which were taken down using blunt dissection. Infundibulum of the gallbladder was distended. It was grasped and retracted anterior laterally. Blunt dissection was carried out the neck of the gallbladder bluntly incising the visceral peritoneum. Cystic duct was isolated and cleaned free. Cystic artery was identified as well. Cystic duct was clipped proximal to the gallbladder. Through a 2 to 3 mm incision taut cholangiocatheter introducer was inserted on the right upper abdomen. Cholangiocatheter was inserted through the introducer. Small incision was made in the cystic duct using laparoscopic micro-Metzenbaums scissors. Cholangiocatheter was manipulated into the cystic duct. Intraoperative cholangiogram was performed using fluoroscopy C arm initially with half-strength contrast. There appeared to be a possible stone or air bubble within the common bile duct. This was able to be flushed free with saline and then completion follow-up imaging with full-strength contrast revealed no evidence of any obvious filling defect or obstruction. Cholangiocatheter was removed. Cystic duct was multiply clipped and sharply divided. Cystic artery was carefully coagulated with HUMZA
--- NOTE | 2020-04-30 16:45 | HMH.ANESI ---
[facility] Anesthesia Record Part I Intake, IV Amount: 900 Estimated blood loss (mL): 20 Urine output (mL): 0 (NM) Blood Products used (#): none Blood Pressure: 117/61 SaO2: 98 Pulse Rate: 80 Respiratory Rate: 12 Temperature: 98.6 F Patient is:: Awake, Drowsy, Nasal O2, Stable Stable to PACU at:: 16:37
--- NOTE | 2020-04-30 17:36 | PC.NURSE ---
Pt has been pleasant and cooperative this shift. A&O X4. No complaints of pain. Lungs CTA. No edema noted. Abdomen noted to be slightly tender this AM. Pt is now status-post laparoscopic cholecystectomy. Abdominal dressings X6 are C/D/I. 4 are trochar incisions, 2 are puncture wounds. Trochar incisions are dressed with mastisol, steri-strips, telfa, and tegaderm. Puncture wounds are dressed with telfa and tegaderm. Pt ambulates independently to/from the bathroom and voids clear, yellow urine without issue. No BM this shift. FSBS results have been 205 and 235. At lunch pt refused insulin coverage due to being NPO for surgery. At dinner, pt received 4 units insulin per sliding scale. 18 G peripheral IV in the RT AC is patent and infusing NS @ 100 ML/HR. Pt is on room air with sats. >90%. VSS. Post-operative vital sign monitoring continues. Call light within reach. Will continue to monitor.
[2020-04-30 17:42] LABS: POC Glucose,Bedside 243 (70-110)
--- NOTE | 2020-04-30 18:05 | HMH.ANESII ---
[facility] Anesthesia Record Part II Discharge Time: 17:07 Destination: [facility] PACU nurse assessment reviewed?: Yes Patient Condition:: Good Anesthesia Complications:: None Swallowing reflex intact?: Yes Cyanosis?: No Blood Pressure: 113/74 Pulse Rate: 81 Temperature: 98.6 F Mental Status: Alert & Oriented Pain level:: 0 Nausea and/or vomitting:: None Intake, IV Amount: 0
[2020-04-30 22:07] LABS: POC Glucose,Bedside 372 (70-110)
[2020-05-01] VITALS: BP 109/67; PULSE 75; RESP 14; TEMP 36.7; O2SAT 98
[2020-05-01 04:00] VITALS: BP 102/54; PULSE 59; RESP 14; TEMP 36.7; O2SAT 97
[2020-05-01 05:10] VITALS: BMI 26.9
--- NOTE | 2020-05-01 05:37 | PC.NURSE ---
Pt is A&Ox4 and has ambulated in the hallway and in rooms a few times this shift and tolerated well independently. Pt has c/o pain 2x, medicated per MAR with good relief. Pt has slept in short intervals this shift and has c/o being woke up by staff, specifically this am by lab. Pt was concerned about having labs drawn as the same from 1-2am. This RN reviewed with pt that these labs were drawn on the previous afternoon, and that d/t her elevated liver enzymes and rec ent surgery, the MD is needing to have updated labs prior to her discharge. Pt stated her understanding. Pt requests to have a shower at tis time. ABD is soft, slightly tender, and mild pain reported but pt tolerating well. 6 Lap sites with dressings covering. The umbilical site is saturated 100% and light pink. No blood pooling around dressing edges. Dressing to RUQ has small amount of light pink area noted, borders marked. Pt denied any nausea. IV infiltrated to RAC, IV removed and pt refused to have new IV placed. Pt educated on need to keep LUE elevated and warm compress offered but refused at this time. Pt has passed flatus a few times this shift, no BM. Active BS x4 quad. Heart RRR. Lungs CTA. Pt refused TEDS & IPCS. Peripheral pulses 2+ and no edema noted. Pt has had a great appetite this shift. VSS, call light within reach, will continue to monitor.
[2020-05-01 05:58] LABS: Basophils % 0.2 % (0.1-2.0); Eosinophils % 0.4 % (0.1-12.0); Hematocrit 43.4 % (37.0-47.0); Hemoglobin 14.4 g/dL (12.2-16.2); Lymphocytes # 2.2 K/mm3 (0.7-4.5); Lymphocytes % 23.3 % (10-50); Mean Corpuscular HGB Conc 33.1 g/dL (31.8-35.4); Mean Corpuscular Hemoglobin 30.9 pg (27.0-31.2); Mean Corpuscular Volume 93.5 fl (81-99); Mean Platelet Volume 8.9 fl (7.4-10.4); Monocytes # 0.3 K/mm3 (0.1-1.0); Monocytes % 3.6 % (1.7-9.3); Neutrophils # 6.8 K/mm3 (1.8-7.8); Neutrophils % 72.4 % (37.0-80.0); Platelet Count 214 K/mm3 (142-424); Red Blood Count 4.64 M/mm3 (4.20-5.40); Red Cell Distribution Width 12.8 % (11.5-17.5); White Blood Count 9.4 K/mm3 (4.8-10.8)
[2020-05-01 06:18] LABS: Chloride 103 mmol/L (98-107); Potassium 4.1 mmoL/L (3.5-5.1); Sodium 136 mmol/L (136-145)
[2020-05-01 06:20] LABS: Alanine Aminotransferase 271 U/L (12-78); Aspartate Amino Transferase 132 U/L (14-36); Blood Urea Nitrogen 15 mg/dl (7-17); Creatinine Clearance Estimated 173 mL/min (50-200); Estimated Glomerular Filt Rate 133 ml/min (>60); GFR (African American) 161 ML/MIN (>60)
[2020-05-01 06:21] LABS: Albumin Level 3.3 g/dl (3.5-5.0); Albumin/Globulin Ratio 1.4 (1.1-1.8); Alkaline Phosphatase 116 U/L (38-126); Anion Gap 11.1 mEq/L (5-15); Bilirubin,Total 0.7 mg/dl (0.2-1.3); Carbon Dioxide 26 mmol/L (22.0-30.0); Globulin 2.4 g/dL (1.3-3.2); Glucose 311 mg/dl (74-100); Total Protein,Serum 5.7 g/dl (6.3-8.2)
[2020-05-01 06:36] LABS: Calcium 8.6 mg/dl (8.4-10.2)
[2020-05-01 06:37] LABS: POC Glucose,Bedside 287 (70-110)
[2020-05-01 08:00] VITALS: BP 108/66; PULSE 62; RESP 17; TEMP 36.9; O2SAT 100
--- NOTE | 2020-05-01 09:19 | HMH.ACPN2 ---
Internal Medicine - PN: Subj *Date: 05/01/20 *Time: 09:19 Interval history: She is doing well and ready for discharge. She did not sleep that well last night. She is not complaining of pain. She did not expect to see Dr. Altman this morning and felt that he was planning for discharge today. Exam Vital signs and Labs for Last 24 Hours: Temp Pulse Resp BP Pulse Ox 98.4 F 62 17 108/66 L 100 05/01/20 08:00 05/01/20 08:00 05/01/20 08:00 05/01/20 08:00 05/01/20 08:00 Laboratory Results - last 24 hr 04/30/20 11:28: POC Glucose 205 H 04/30/20 14:15: Total Bilirubin 0.9, Direct Bilirubin 0.2, Conjugated Bilirubin 0.0, Indirect Bilirubin 0.7, Unconjugated Bilirubin 0.7, AST 449 H* D, ALT 351 H*, Alkaline Phosphatase 113, Total Protein 6.2 L, Albumin 3.6 D 04/30/20 14:15: Hemoglobin A1c 10.9 H 04/30/20 17:16: POC Glucose 243 H 04/30/20 20:46: POC Glucose 372 H* 05/01/20 05:15: WBC 9.4, RBC 4.64, Hgb 14.4, Hct 43.4, MCV 93.5, MCH 30.9, MCHC 33.1, RDW 12.8, Plt Count 214, MPV 8.9, Neut % (Auto) 72.4, Lymph % (Auto) 23.3, [place] % (Auto) 3.6, Eos % (Auto) 0.4, Baso % (Auto) 0.2, Neut # (Auto) 6.8, Lymph # (Auto) 2.2, [place] # (Auto) 0.3, Eos # (Auto) 0.0, Baso # (Auto) 0.0 05/01/20 05:15: Sodium 136, Potassium 4.1, Chloride 103, Carbon Dioxide 26, Anion Gap 11.1, BUN 15, Creatinine 0.50 L, Estimated Creat Clear 173, Estimated GFR 133, Est GFR ( Amer) 161, Glucose 311 H, Calcium 8.6 D, Total Bilirubin 0.7, AST 132 H D, ALT 271 H, Alkaline Phosphatase 116, Total Protein 5.7 L, Albumin 3.3 L, Globulin 2.4, Albumin/Globulin Ratio 1.4 05/01/20 06:27: POC Glucose 287 H I & O for Last 24 hours: Intake & Output 04/28/20 04/29/20 04/30/20 05/01/20 11:59 11:59 11:59 11:59 Intake Total 1000 / 1000 2390 / 2390 Balance 1000 / 1000 2390 / 2390 Weight 172 lb 172 lb - Constitutional no acute distress - *Routine HEENT Exam Head: Present: normocephalic Eye: Present: PERRL - *Routine Respiratory Exam Present: CTA bilaterally - *Routine Cardiovascular Exam Present: RRR - *Routine Abdominal Exam Present: soft, surgical scars (With clean dressings in place.) - *Routine Extremities Exam Absent: edema Assessment and Plan (1) Cholangitis Status: Acute Category: Medical Code(s): K83.09 - Other cholangitis (2) Diabetes mellitus with insulin therapy Status: Acute Category: Medical Code(s): E11.9 - Type 2 diabetes mellitus without complications; Z79.4 - assistant terminal manager (current) use of insulin (3) Transaminitis Status: Acute Category: Medical Code(s): R74.01 - Elevation of levels of liver transaminase levels (4) GERD (gastroesophageal reflux disease) Status: Acute Category: Medical Code(s): K21.9 - Gastro-esophageal reflux disease without esophagitis - Assessment and plan all Dx Assessment and Plan for all problems:: Discharge today. Follow-up this week with Dr. Altman.
--- NOTE | 2020-05-02 19:50 | HMH.DCSUM ---
General - General Admission date:: 04/30/20 Discharge date: 03/31/20 HPI HPI: Ms. Nicolas is a 45yo white female with history of DM managed by endocrinology and GERD. She had been diagnosed with gallstones and described four or five prior episodes of acute abdominal pain this year, with cholecystectomy scheduled for 06/09/2020. She reported having a severe episode of abdominal pain and nausea 6 days ago for which she was seen at [facility] ED and discharged home when symptoms improved with treatment. She reported she had since been eating as little as possible in order to avoid further episodes. She reported starting with increased abdominal pain the previous evening around 8pm, accompanied by intense nausea without vomiting. When her pain did not improve after several hours, she came to the ED for treatment. Upon arrival, her glucose was elevated at 365. Liver functions were elevated with bilirubin 1.4, AST 226, ALT 114, Alk Phos 134. She was admitted for pain control and surgical consultation was ordered. The following morning, she was feeling better. She denied pain. She was tolerating ice chips well and reported she only became nauseated when pain was severe. Hospital Course Hospital Course: Patient was admitted from the emergency room for pain and nausea management, was given IV fluids, and seen by surgeon, Dr. Altman. Blood sugars were monitored and she was on sliding scale insuin. In the evening of 04/30/2020 patient had a laparoscopic cholecystectomy with intraoperative cholangiogram. She tolerated the procedure well. On 05/01/2020 patient was doing well and ready for discharge. She was not complaining of any pain. On this date she was discharged home in stable and satisfactory condition. She was instructed on limited activity, low-fat, low-cholesterol diet. She was to follow-up with Dr. Altman. She was given [place] for discomfort. Other meds as per medication reconciliation sheet. See Data for specific lab and test results Objective Vital signs: Temp Pulse Resp BP Pulse Ox 98.4 F 62 17 108/66 L 100 05/01/20 08:00 05/01/20 08:00 05/01/20 08:00 05/01/20 08:00 05/01/20 08:00 Narrative: Exam Vital signs and Labs for Last 24 Hours: Temp Pulse Resp BP Pulse Ox 98.4 F 62 17 108/66 L 100 05/01/20 08:00 05/01/20 08:00 05/01/20 08:00 05/01/20 08:00 05/01/20 08:00 Laboratory Results - last 24 hr 04/30/20 11:28: POC Glucose 205 H 04/30/20 14:15: Total Bilirubin 0.9, Direct Bilirubin 0.2, Conjugated Bilirubin 0.0, Indirect Bilirubin 0.7, Unconjugated Bilirubin 0.7, AST 449 H* D, ALT 351 H*, Alkaline Phosphatase 113, Total Protein 6.2 L, Albumin 3.6 D 04/30/20 14:15: Hemoglobin A1c 10.9 H 04/30/20 17:16: POC Glucose 243 H 04/30/20 20:46: POC Glucose 372 H* 05/01/20 05:15: WBC 9.4, RBC 4.64, Hgb 14.4, Hct 43.4, MCV 93.5, MCH 30.9, MCHC 33.1, RDW 12.8, Plt Count 214, MPV 8.9, Neut % (Auto) 72.4, Lymph % (Auto) 23.3, [place] % (Auto) 3.6, Eos % (Auto) 0.4, Baso % (Auto) 0.2, Neut # (Auto) 6.8, Lymph # (Auto) 2.2, [place] # (Auto) 0.3, Eos # (Auto) 0.0, Baso # (Auto) 0.0 05/01/20 05:15: Sodium 136, Potassium 4.1, Chloride 103, Carbon Dioxide 26, Anion Gap 11.1, BUN 15, Creatinine 0.50 L, Estimated Creat Clear 173, Estimated GFR 133, Est GFR ( Amer) 161, Glucose 311 H, Calcium 8.6 D, Total Bilirubin 0.7, AST 132 H D, ALT 271 H, Alkaline Phosphatase 116, Total Protein 5.7 L, Albumin 3.3 L, Globulin 2.4, Albumin/Globulin Ratio 1.4 05/01/20 06:27: POC Glucose 287 H I & O for Last 24 hours: Intake & Output 04/28/20 04/29/20 04/30/20 05/01/20 11:59 11:59 11:59 11:59 Intake Total 1000 / 1000 2390 / 2390 Balance 1000 / 999 2390 / 2390 Weight 172 lb 172 lb - Constitutional no acute distress - *Routine HEENT Exam Head: Present: normocephalic Eye: Present: PERRL - *Routine Respiratory Exam Present: CTA bilaterally - *Routine Cardiovascular Exam Present: RRR - *Routine Ab
== END 2020-05-01 10:45 | disposition home or self-care (01) ==
LOC: ER 03:44 → 2ND 04:46
PROVIDERS: Surgery; Admitting Provider Family Medicine; Emergency Provider Emergency Medicine; PCP Family Medicine; Visit Provider Family Medicine
PROC: (CPT 47563; principal; 2020-04-30 15:00)
DX: K80.00 Calculus of gallbladder with acute cholecystitis without obstruction (principal); E11.9 Type 2 diabetes mellitus without complications; Z79.4 Long term (current) use of insulin
CPT/HCPCS: 47563; 36415; 74177; 76000; 80053; 80076; 81001; 82962; 83036; 83690; 85025; 85651; 86140; 86328; 96365; 96375; 99284; G0378; J2405; J2710; Q9967

== ENCOUNTER 2025-05-25 14:39 | Emergency (ER) | payer MEDICAID, SELFPAY ==
--- OUTSIDE RECORDS SUMMARY | 2025-03-27 08:30 | XMS_ITS | Encounter Summary ---
Author Organization Healthcare Address [address] [place] [address] Care Team Providers Care Airfield Engineer Officer Name Role Phone Ravi Izquierod MD Primary Care Provider + [phone] Reason for Visit * Consultation (Routine) - Closed Specialty Diagnoses / Procedures Referred By Eulalia mcfarland Referred To Contact Ophthalmology Diagnoses Cataract System, Provider Not In, [address] [place] [id number] [facility] [address] [place] [address] Phone: tel: fax: Referral ID Status Reason Start Date Expiration Date V isits Requested Visits Authorized [id number] Closed Specialty Services Required 03/04/2025 09/03/2026 1 1 Encounter Details Date Type Department Care Team (Late st Contact Info) Description 03/27/2025 9:30 AM EDT Office Visit [facility] [address], [address] [place] [address] Tori Harris MD [address] [address] Combined forms of age-related cataract of both eyes (Primary Dx) Social History Tobacco Use Types Packs/Day Years Used Date Smoking Tobacco: Never Comments Unknown Sex and Gender Information Value Date Recorded Sex Assigned at Not on file Legal Sex Female 8:39 PM EDT Gender Identity Not on file Sexual Orientation Not on file documented as of this encounter Miscellaneous Notes * Progress Notes - Tori Harris MD - 03/27/2025 9:30 AM EDT Subjective Patient ID: Marge Nicolas is a 50 y.o. female. HPI 50 year old new patient presents to clinic for a Cataract evaluation. Pt states both her distance and near vision is worsening. Pt states the cataracts are prominent in her left eye (OS). Pt denies having any eye pain, swelling, or discharge. Pt does have floaters in her vision. Pt denies using anydrops (gtts). Pt doesn't have a glasses Rx. Pt denies having any questions or concerns for physician. Last edited by Emily Mott on 03/27/2025 9:31 AM. No current outpatient medications on file. (Ophthalmic Drugs) No current facility-administered medications for this visit. (Ophthalmic Drugs) No current outpatient medications on file. (Other) No current facility-administered medications for this visit. (Other) Objective Base Eye Exam Visual Acuity (Snellen - Linear) Right Left Dist sc 20/60 -2 CF at 3' Near sc J10 OU at face No improvement with pinhole (ph) in right eye (OD) and left eye (OS) Tonometry (Tonopen, 9:46 AM) Right Left Pressure 15 12 Pupils Pupils Shape React APD Right PERRL Round Brisk None Left PERRL Round Brisk None Visual Mcrae Right Left Full Restrictions Partial outer superior temporal, inferior temporal deficiencies Extraocular Movement Right Left Full, Ortho Full, Ortho Neuro/Psych Oriented x3: Yes Mood/Affect: Normal Dilation Both eyes: 1% Tropicamide @ 9:47 AM Additional Tests Glare Testing (Transilluminator) High Right 20/200 Left Slit Lamp and Fundus Exam External Exam Right Left External Normal Normal Slit Lamp Exam Right Left Lids/Lashes Normal for age Normal for age Conjunctiva/Sclera Normal Normal Cornea Tr PEE Tr PEE Anterior Chamber Deep and quiet Deep and quiet Iris Normal pupil size and shape Normal pupil size and shape Lens 1-2+ns 3+psc 3+NS, 1+cortical 4+ PSC Anterior Vitreous Normal Normal Fundus Exam Right Left Disc Flat, Sharp, good Color Hazy view C/D Ratio 0.3 0.3 Macula Normal Normal Vessels Normal Normal Periphery Attached; no retinal or choroidal lesions Attached; no retinal or choroidal lesions Assessment/Plan Assessment & Plan Combined forms of age-related cataract of both eyes Patient with difficulty performing ADLs due to age related combined cataract of Both Eye. No other pathology noted to explain decrease in vision other than cataract. Cataract extraction discussed with patient and patient is interested in proceeding with surgery. Discussed risks of surgery including 06/4999 chance of infection, 1/100 chance of a complication and1 /1000 chance of a complication that we can't fix. If does get a complication can include a longer surgery time, longer recovery time, more drops, more visits, and possibly more surgery. Also a chance of not improving vision with cataract surgery or loss of vision and always a chance of loss of the eye Discussed logistics including location of surgery and what to expect the day of surgery. Discussed post op care of drops that he will need to take. Discussed options for CEIOL and will plan to set both eyes for distance and patient understands will need readers. Consent Obtained. And patient to be scheduled for cataract extraction of Both Eye. IOL calcs to be performed CEIOL OS than OD dense OS- trypan/ring mostly PSC OD- trypan FU sc manager oracle to call documented in this encounter Plan of Treatment Upcoming Encounters Date Type Department Care Team (Late st Contact Info) Description 05/29/2025 10:45 AM EST Office Visit [facility] [address], [address] [place] [address] Tori Harris MD [address] [address] 07/03/2025 1:00 PM EST Office Visit [facility] [address] [place] [address] Tori Harris MD [address] [address] documented as of this encounter Visit Diagnoses Diagnosis Combined forms of age-related cataract of both eyes- Primary documented in this encounter Additional Health Concerns Assessment Noted Time A fall risk assessment has been complete d for the patient 03/27/2025 9:32 AM EDT A Body Mass Index follow-up plan has been documented for the patient 03/27/2025 10:10 AM EDT documented as of this encounter Care Teams Airfield Engineer Officer Relationship Specialty Start Date End Date Ravi Izquierdo MD [facility] [place] [address] PCP - General 11/05/20 documented as of this encounter
--- OUTSIDE RECORDS SUMMARY | 2025-04-16 09:30 | XMS_ITS | Encounter Summary ---
Author Organization [facility] Address [address] [place] [address] Care Team Providers Care Laboratory Supervisor Name Role Phone Ravi Izquierdo MD Primary Care Provider + [phone] Encounter Details Date Type Department Care Team (Late st Contact Info) Description 04/16/2025 10:30 AM EDT Consult [facility] [address] [place] [address] Tori Harris MD [address] [address] Cataract, unspecified cataract type, unspecified laterality (Primary Dx); Combined forms of age-related cataract of both eyes Social History Tobacco Use Types Packs/Day Years Used Date Smoking Tobacco: Never Comments Unknown Sex and Gender Information Value Date Recorded Sex Assigned at Not on file Legal Sex Female 8:39 PM EDT Gender Identity Not on file Sexual Orientation Not on file documented as of this encounter Miscellaneous Notes * Progress Notes - Tori Harris MD - 04/16/2025 10:30 AM EDT Subjective Patient ID: Marge Nicolas is a 50 y.o. female. HPI 50 y.o. female presents for cataract surgery pre-op. Patient has stopped driving due to vision. Can not recognize faces out of left eye. Last edited by Teresa Jacobson on 04/16/2025 10:28 AM. Current Outpatient Medications (Ophthalmic Drugs) Medication Sig moxifloxacin (Vigamox) 0.5 % ophthalmic solution Administer 1 drop into the left eye 4 times a day for 7 days. prednisoLONE acetate (Pred-Forte) 1 % ophthalmic suspension Administer 1 drop into the left eye 4 times a day. No current facility-administered medications for this visit. (Ophthalmic Drugs) No current outpatient medications on file. (Other) No current facility-administered medications for this visit. (Other) Objective Base Eye Exam Visual Acuity (Snellen - Linear) Right Left Dist sc 20/60 CF at 4' Tonometry (Tonopen, 10:37 AM) Right Left Pressure 11 13 Neuro/Psych Oriented x3: Yes Mood/Affect: Normal Assessment/Plan Assessment & Plan Combined forms of age-related cataract of both eyes As and Ks IOL calcs Consent signed Drops sent Plan for CEIOL documented in this encounter Plan of Treatment Upcoming Encounters Date Type Department Care Team (Late st Contact Info) Description 05/29/2025 10:45 AM EST Office Visit [facility] [address] [place] [address] Tori Harris MD [address] [place] [address] 07/03/2025 1:00 PM EST Office Visit [facility] [address], [address] [place] [address] Tori Harris MD [address] [place] [address] documented as of this encounter Procedures Procedure Name Priority Date/Time Associated Diagnosis Comments ULTRASOUND BIOMETRY W IOL KEVEN - OU - BOTH EYES Routine 04/16/2025 11:32 AM EDT Cataract, unspecified cataract type, unspecified laterality documented in this encounter Results * Ultrasound Biometry w IOL Keven - OU - Both Eyes (04/16/2025 11:32 AM EDT) Anatomical Region Laterality Modality Head Other Narrative 04/16/2025 11:32 AM EDT Right Eye Lens style: DIB00. Lens power: 25.00. Left Eye Lens style: DIB00. Lens power: 24.50. Notes MA60AC 24.50 OD MA60AC 24.00 OS us Tori Harris MD OPHTH ULTRASOUND Final Resul t documented in this encounter Visit Diagnoses Diagnosis Cataract, unspecified cataract type, unspecified laterality- Primary Combined forms of age-related cataract of both eyes documented in this encounter Additional Health Concerns Assessment Noted Time A fall risk assessment has been complete d for the patient 03/27/2025 9:32 AM EDT A Body Mass Index follow-up plan has been documented for the patient 04/16/2025 11:16 AM EDT documented as of this encounter Care Teams Laboratory Supervisor Relationship Specialty Start Date End Date Ravi Izquierdo MD [address] [place] [address] PCP - General 11/05/20 documented as of this encounter
--- OUTSIDE RECORDS SUMMARY | 2025-04-29 15:00 | XMS_ITS | Encounter Summary ---
Author Organization Healthcare Address [address] [place] [address] Care Team Providers Care Specialist Managers Name Role Phone Ravi Izquierdo MD Primary Care Provider + [phone] Encounter Details Date Type Department Care Team (Late st Contact Info) Description 04/29/2025 3:00 PM EST [facility] Visit [facility] [address], [place] [address] Tori Harris MD [address] [place] [address] Pseudophakia (Primary Dx) Social History Tobacco Use Types Packs/Day Years Used Date Smoking Tobacco: Never Passive Smoke Exposure: Never Smokeless Tobacco: Never Tobacco Cessation:Counseling Given: Not Answered Comments Unknown Sex and Gender Information Value Date Recorded Sex Assigned at Not on file Legal Sex Female 8:39 PM EDT Gender Identity Not on file Sexual Orientation Not on file documented as of this encounter Miscellaneous Notes * Progress Notes - Tori Harris MD - 04/29/2025 3:00 PM EST Subjective Patient ID: Marge Nicolas is a 50 y.o. female. HPI Per pt visual acuity (VA) is doing good. She is very pleased with her sx. Pt is compliant with drops (gtts), Prednisolone left eye (OS) QID, and Moxifloxacin left eye (OS) QID. No issues or concerns today. Last edited by Deshaun Manzano on 04/29/2025 2:59 PM. Current Outpatient Medications (Ophthalmic Drugs) Medication Sig [...] - Linear) Right Left Dist sc 20/60 20/40 +2 Tonometry (Tonopen, 3:04 PM) Right Left Pressure 14 12 Slit Lamp and Fundus Exam External Exam Right Left External Normal Slit Lamp Exam Right Left Lids/Lashes Normal for age Conjunctiva/Sclera Normal Cornea 1+edema 1-2+DMF, wound sealed Anterior Chamber Deep- 2+ cell Iris Normal Lens PCIOL in the bag Anterior Vitreous Normal Assessment/Plan Assessment & Plan Pseudophakia POD1 status post (s/p) CEIOL Left eye OS Visual acuity (VA) improving. Start PF/Moxi drop QID No heavy lifting, bending over (>10lbs) x 1 week Shield at night x 1 week Follow up: 1 week post op documented in this encounter Plan of Treatment Upcoming Encounters Date Type Department Care Team (Late st Contact Info) Description 05/29/2025 10:45 AM EST Office Visit [facility] [place] [address] [place] [address] Tori Harris MD [address] [place] [address] 07/03/2025 1:00 PM EST Office Visit [facility] [address] [place] [address] Tori Harris MD [address] [place] [address] documented as of this encounter Visit Diagnoses Diagnosis Pseudophakia- Primary Lens replaced by other means documented in this encounter Additional Health Concerns Assessment Noted Time A fall risk assessment has been complete d for the patient 03/27/2025 9:32 AM EDT A Body Mass Index follow-up plan has been documented for the patient 04/29/2025 3:20 PM EST documented as of this encounter Care Teams Specialist Managers Relationship Specialty Start Date End Date Ravi Izquierdo MD [address] [place] [address] PCP - General 11/05/20 documented as of this encounter
--- OUTSIDE RECORDS SUMMARY | 2025-05-08 10:45 | XMS_ITS | Encounter Summary ---
Author Organization Healthcare Address [address] [place] [address] Care Team Providers Care Assistant Cross Country Coach Name Role Phone Ravi Izquierdo MD Primary Care Provider + [phone] Encounter Details Date Type Department Care Team (Late st Contact Info) Description 05/08/2025 10:45 AM EST Office Visit [facility] [place] [address] [place] [address] Tori Harris MD [address] [place] [address] Pseudophakia (Primary Dx) Social History Tobacco Use Types Packs/Day Years Used Date Smoking Tobacco: Never Passive Smoke Exposure: Never Smokeless Tobacco: Never Comments Unknown Sex and Gender Information Value Date Recorded Sex Assigned at Not on file Legal Sex Female 8:39 PM EDT Gender Identity Not on file Sexual Orientation Not on file documented as of this encounter Miscellaneous Notes * Progress Notes - Tori Harris MD - 05/08/2025 10:45 AM EST Subjective Patient ID: Marge Nicolas is a 50 y.o. female. HPI 50 year old patient presents to clinic for a one week Post op visit. Pt states her vision has improved since surgery. Pt has minimum pain. Pt is using drops (gtts) prescribed (prednisoLONE acetate (Pred-Forte) 1 % ophthalmic suspension). Pt is concerned about when she'll be able to lift objects again. Last edited by Emily Mott on 05/08/2025 10:34 AM. Current Outpatient Medications (Ophthalmic Drugs) Medication Sig prednisoLONE acetate (Pred-Forte) 1 % ophthalmic suspension Administer 1 drop into the left eye 4 times a day. No current facility-administered medications for this visit. (Ophthalmic Drugs) No current outpatient medications on file. (Other) No current facility-administered medications for this visit. (Other) Objective Base Eye Exam Visual Acuity (Snellen - Linear) Right Left Dist sc 20/60 +2 20/40 Dist ph sc 20/40 +1 Near sc J7 OU No improvement with pinhole (ph) in left eye (OS) Tonometry (Tonopen, 10:44 AM) Right Left Pressure 11 10 Pupils Pupils Right PERRL Left PERRL Visual Mcrae Right Left Full Restrictions Partial outer inferior nasal deficiency Extraocular Movement Right Left Full, Ortho Full, Ortho Neuro/Psych Oriented x3: Yes Mood/Affect: Normal Slit Lamp and Fundus Exam External Exam Right Left External Normal Slit Lamp Exam Right Left Lids/Lashes Normal for age Conjunctiva/Sclera Normal Cornea tr DMF Anterior Chamber tr cell Iris Normal Lens PCIOL in the bag Anterior Vitreous Normal Assessment/Plan Assessment & Plan Pseudophakia POW1 Status post (s/p) CEIOL left eye (OS) Visual acuity (VA) improved. Patient happy Still with mild K edema- cont PF QID for 1 more week than taper down 3-2-1 per week Discontinue shield at night and lifting restrictions OK to resume normal activities Follow up: 05/18 OD documented in this encounter Plan of Treatment Upcoming Encounters Date Type Department Care Team (Late st Contact Info) Description 05/29/2025 10:45 AM EST Office Visit [facility] [address] [place] [address] Tori Harris MD [address] [place] [address] 07/03/2025 1:00 PM EST Office Visit [facility] [address] [place] [address] Tori Harris MD [address] [address] documented as of this encounter Visit Diagnoses Diagnosis Pseudophakia- Primary Lens replaced by other means documented in this encounter Additional Health Concerns Assessment Noted Time A fall risk assessment has been complete d for the patient 05/08/2025 10:35 AM EST A Body Mass Index follow-up plan has been documented for the patient 05/08/2025 11:10 AM EST documented as of this encounter Care Teams Assistant Cross Country Coach Relationship Specialty Start Date End Date Ravi Izquierdo MD [address] [place] [address] PCP - General 11/05/20 documented as of this encounter
--- OUTSIDE RECORDS SUMMARY | 2025-05-19 14:45 | XMS_ITS | Encounter Summary ---
Author Organization Healthcare Address [address] [place] [address] Care Team Providers Care Sales Office Assistant Name Role Phone Ravi Izquierdo MD Primary Care Provider + [phone] Encounter Details Date Type Department Care Team (Late st Contact Info) Description 05/19/2025 2:45 PM EST Office Visit [facility] [place] [address] [place] [address] Tori Harris MD [address] [place] [address] Pseudophakia (Primary Dx) Social History [...] Progress Notes - Tori Harris MD - 05/19/2025 2:45 PM EST Subjective Patient ID: Marge Nicolas is a 50 y.o. female. HPI 50 y/o here for one day post-op after cataract extraction (CE)/Iol of R eye . Patient states that when she put post-op drops (gtts) yesterday ( used just 2 times ) it was very painful. Last edited by Leticia Preciado on 05/19/2025 2:55 PM. Current Outpatient Medications (Ophthalmic Drugs) Medication Sig prednisoLONE acetate (Pred-Forte) 1 % ophthalmic suspension Administer 1 drop into the left eye 4 times a day. No current facility-administered medications for this visit. (Ophthalmic Drugs) No current outpatient medications on file. (Other) No current facility-administered medications for this visit. (Other) Objective Base Eye Exam Visual Acuity (Snellen-Linear) Right Left Both Dist sc 20/20-3 20/20-3 Near cc J1+ Tonometry (Tonopen, 3:07 PM) Right Left Pressure 10 10 Pupils Pupils Right PERRL Left PERRL Extraocular Movement Right Left Full Full Neuro/Psych Oriented x3: Yes Slit Lamp and Fundus Exam External Exam Right Left External Normal Slit Lamp Exam Right Left Lids/Lashes Normal for age Conjunctiva/Sclera Normal Cornea Wound edema, wound sealed Anterior Chamber 2+ cell Iris Normal Lens PCIOL in the bag Anterior Vitreous Normal Refraction Wearing Rx Sphere Right +4.50 Left +4.50 Type: OTC Assessment/Plan Assessment & Plan Pseudophakia POD1 status post (s/p) CEIOL right eye (OD) Visual acuity (VA) improving. Start PF/Moxi drop QID No heavy lifting, bending over (>10lbs) x 1 week Shield at night x 1 week Follow up: 1 week post op documented in this encounter Plan of Treatment Upcoming Encounters Date Type Department Care Team (Late st Contact Info) Description 05/29/2025 10:45 AM EST Office Visit [facility] [place] [address] [place] [address] Tori Harris MD [address] [place] [address] 07/03/2025 1:00 PM EST Office Visit [facility] [place] [address] [place] [address] Tori Harris MD [address] [place] [address] documented as of this encounter Visit Diagnoses Diagnosis Pseudophakia- Primary Lens replaced by other means documented in this encounter Additional Health Concerns Assessment Noted Time A fall risk assessment has been complete d for the patient 05/08/2025 10:35 AM EST A Body Mass Index follow-up plan has been documented for the patient 05/19/2025 3:35 PM EST documented as of this encounter Care Teams Sales Office Assistant Relationship Specialty Start Date End Date Ravi Izquierdo MD [address] [place] [address] PCP - General 11/05/20 documented as of this encounter
[2025-05-25] VITALS (10 sets, daily range): BP systolic 111–159; BP diastolic 71–93; PULSE 87–96; RESP 16–22; TEMP 36.6–36.7; O2SAT 94–100; BMI 22.4
--- NOTE | 2025-05-25 14:42 | ECG_ITS ---
APPROVED REPORT Exam: Resting ECG HR:90 bpm ECG Measurements Heart Rate 90 AXES OK 172 P 74 QRSd 104 QRS 60 QT 367 T 68 QTc 415 Conclusion SINUS RHYTHM NORMAL ECG Electronically signed by : JOSESITO PATINO, 05/26/2025 17:17:33
--- NOTE | 2025-05-25 14:51 | XR_ITS ---
FINAL REPORT CLINICAL HISTORY: short of breath FINDINGS: A portable view of the chest is obtained. There is no prior exam for comparison. Cardiac and mediastinal silhouettes are normal. The lungs are clear. There is no pleural effusion or pneumothorax. IMPRESSION: No acute process on this portable exam. Reviewed, Interpreted and Dictated by Neha Mejia MD Transcribed by Helen Diaz Authenticated and [facility]
[2025-05-25 14:57] LABS: Hematocrit 40.0 % (37.0-47.0); Hemoglobin 13.7 g/dL (12.2-16.2); Immature Granulocytes % 0.3 %; Mean Corpuscular HGB Conc 34.3 g/dL (31.8-35.4); Mean Corpuscular Hemoglobin 29.9 pg (27.0-31.2); Mean Corpuscular Volume 87.3 fl (81-99); Nucleated Red Blood Cells % 0 %; Platelet Count 275 K/mm3 (142-424); Red Blood Count 4.58 M/mm3 (4.20-5.40); Red Cell Distribution Width-SD 37.2 fL; White Blood Count 11.9 K/mm3 (4.8-10.8)
--- NOTE | 2025-05-25 14:59 | ED_ITS ---
Discharge Plan Disposition Chief Complaint: Chest Pain Prescriptions Prescriptions: No Action cholecalciferol (vitamin D3) 1,250 MCG capsule 50,000 unit PO WEEKLY Referrals Follow up/Referrals: Ravi Izquierdo MD [Staff Physician, Medical] - See instructions Print Language Print Language: Upper Sorbian Discharge ED Provider: Brendan Morales General Chief Complaint: Chest Pain Stated Complaint: Chest Pain Time Seen by Provider: 05/25/25 14:47 Mode of Arrival: Ambulatory Source of Information: Patient Description of Symptoms (Recalled from ER Triage Doc. by RN): Pt presents with chest pain for the last two days. Pt states she started vomitting around 2 hours ago which is why she even came in. History of Present Illness HPI narrative: 50-year-old female presents to the ED for complaint of chest pain for the last 2 days, vomiting for the last 2 hours and left low back pain with nausea. She has no urinary symptoms. She has taken 11 g a day of kratom. She has no shortness of breath no urinary symptoms. She tells me that she is weaning down off kratom and tells me that 11 g a day is a low-dose. Related Data Home Medications ?Medication ?Instructions ?Recorded ?Confirmed cholecalciferol (vitamin D3) 1,250 50,000 unit PO WEEK LY Supplement 04/30/20 01/04/22 mcg (50,000 unit) capsule Allergies Allergy/AdvReac Type Severity Reaction Status Date / Time No Known Allergies Allergy Verified 05/14/20 09:49 [facility] Disclaimer: The information contained in this section may have been updated after the patient was seen, as this information can be updated by other users. Social History Smoking Status: Former smoker alcohol intake: current alcohol intake frequency: a few times a week substance use type: denies use current occupational status: unemployed Travel in the last 8 weeks?: None household members: spouse current occupational exposures/hazards: No caffeine: Yes Have you lived/traveled outside US in past 30 days?: No Contact w/someone who lives/traveled outside US past 30 days?: No Exposure to someone with infectious disease in past 14 days?: No Do you have a fever (greater than 100.4 F or 38 C)?: No Have you tested positive for COVID-19?: No Exposed to someone with COVID-19 in past 14 days?: No Do you have a sore throat?: No Do you have a cough?: No Do you have any weakness?: No Do you have any diarrhea?: No Are you experiencing any unusual bleeding?: No Do you have any muscle aches/pain?: No Do you have any abdominal pain?: No Are you experiencing loss of taste or smell?: No Other Medical History Have you received the Flu Vaccine for this season: No Have you received the Pneumonia Vaccine: No ROS Obtained: Yes Systems reviewed as appropriate & no additional complaints except as documented Constitutional Constitutional: Reports as per HPI Physical Exam General General appearance: alert and anxious Head Head exam: normocephalic Eye Eye exam: Present PERRL and EOMI ENT ENT exam: Present normal oropharynx and mucous membranes moist Neck Neck exam: Present full ROM and trachea midline Respiratory Respiratory exam: Present normal lung sounds bilaterally Cardiovascular Cardiovascular exam: Present regular rate, normal rhythm, normal heart sounds, +S1 and +S2 Abdominal Exam Abdominal exam: Present soft and normal bowel sounds Extremities Exam Extremities exam: Present full ROM and normal capillary refill Back Exam Back exam: Present normal inspection Neurological Exam Neurological exam: Present alert and oriented X3 Skin Skin exam: Present warm and dry HEART Score HEART Score HEART Score assessment performed?: Yes History (anamnesis): Slightly suspicious ECG: Non-specific disturbance Age: 45-65 years Risk factors: 1-2 risk factors Troponin: </= normal limit HEART Score: 3 Critical Care Critical Care Time Critical Care Time: No Medical Decision Making Mark Inquiry Pt receiving controlled substance: No Mark was queried for this patient: No Vital Signs Vital Signs: 05/25/25 14:47 05/25/25 14:50 05/25/25 15:30 Temperature 98.0 F Temperature Source Oral Pulse Rate 90 92 H Pulse Rate [Right] 90 Respiratory Rate 22 20 Blood Pressure 150/90 H 159/93 H Blood Pressure [Right Arm] 157/93 H Blood Pressure Mean 107 Blood Pressure Mean [Right Arm] 114 Blood Pressure Source Automatic Cuff Blood Pressure Source [Right Arm] Automatic Cuff Blood Pressure Position Sitting Blood Pressure Position [Right Arm] Sitting 02 Sat by Pulse Oximetry 100 99 97 Oxygen Delivery Method Room Air Room Air 05/25/25 16:00 05/25/25 16:30 05/25/25 17:00 Temperature Temperature Source Pulse Rate 87 94 H 92 H Pulse Rate [Right] Respiratory Rate Blood Pressure 150/91 H 130/87 120/80 Blood Pressure [Right Arm] Blood Pressure Mean 114 101 93 Blood Pressure Mean [Right Arm] Blood Pressure Source Blood Pressure Source [Right Arm] Blood Pressure Position Blood Pressure Position [Right Arm] 02 Sat by Pulse Oximetry 95 95 96 Oxygen Delivery Method 05/25/25 17:30 05/25/25 18:00 Temperature Temperature Source Pulse Rate 95 H 90 Pulse Rate [Right] Respiratory Rate Blood Pressure 111/71 116/72 Blood Pressure [Right Arm] Blood Pressure Mean 84 82 Blood Pressure Mean [Right Arm] Blood Pressure Source Blood Pressure Source [Right Arm] Blood Pressure Position Blood Pressure Position [Right Arm] 02 Sat by Pulse Oximetry 94 L 95 Oxygen Delivery Method Lab Data Labs: Lab Results 05/25/25 14:52: WBC 11.9 H, RBC 4.58, Hgb 13.7, Hct 40.0, MCV 87.3, MCH 29.9, MCHC 34.3, RDW 11.7, Plt Count 275, MPV 10.5 H, Neut % (Auto) 67.9, Lymph % (Auto) 26.5, [place] % (Auto) 3.9, Eos % (Auto) 1.1, Baso % (Auto) 0.3, Neut # (Auto) 8.1 H, Lymph # (Auto) 3.2, [place] # (Auto) 0.5, Eos # (Auto) 0.1, Baso # (Auto) 0.0, Sodium 139, Potassium 3.7, Chloride 99, Carbon Dioxide 29, Anion Gap 14.7, BUN 15, Creatinine 0.50 L, Estimated Creat Clear 129, Estimated GFR 130, Est GFR ( Amer) 157, Glucose 293 H, Calcium 9.1, Magnesium 1.8, Total Bilirubin 0.7, AST 25, ALT 20, Alkaline Phosphatase 82, Troponin I < 0.01, Total Protein 7.4 D, Albumin 4.2, Globulin 3.2, Albumin/Globulin Ratio 1.3, Lipase 70 05/25/25 17:38: Troponin I < 0.01 05/25/25 14:52 05/25/25 14:52 Response Orders (Tests/Meds): ED MEDICATIONS Discontinued Medications Generic Name Dose Route Start Last Admin Trade Name Freq PRN Reason Stop Dose Admin Aspirin 325 mg 05/25/25 14:48 05/25/25 15:34 Aspirin 325mg Tablet PO 05/25/25 14:49 325 mg ONCE ONE Administration Sodium Chloride 1,000 mls @ 999 mls/hr 05/25/25 14:48 05/25/25 18:20 Sod Chlor 0.9% 1000ml Bag IV 05/25/25 15:48 Infused .Q1H1M ONE Infusion Ketorolac Tromethamine 30 mg 05/25/25 14:48 05/25/25 15:34 Ketorolac 30mg/Ml Vial IV 05/25/25 14:49 30 mg ONCE ONE Administration Ondansetron HCl 4 mg 05/25/25 14:48 05/25/25 15:34 Ondansetron 4mg/2ml Vial IV 05/25/25 14:49 4 mg ONCE ONE Administration ORDERS Category Date Time Status Chest XR -- portable [XR chest portable] Stat Exams 05/25/25 14:51 Completed CBC [Complete Blood Count Auto Diff] Stat Lab 05/25/25 14:52 Completed Comprehensive Metabolic Panel Stat Lab 05/25/25 14:52 Completed Lipase Stat Lab 05/25/25 14:52 Completed Magnesium Stat Lab 05/25/25 14:52 Completed Trop I [Troponin I] Stat Lab 05/25/25 14:52 Completed Troponin I Q3H Lab 05/25/25 17:38 Completed Troponin I Q3H Lab 05/25/25 21:00 Ordered MDM Narrative Medical Decision Narrative: patient is a 50-year-old female presenting to the emergency department for evaluation of chest pain, vomiting and nausea with left low back pain. Patient is hemodynamically stable and nontoxic-appearing upon arrival, afebrile. Differential diagnosis includes ACS, CAD, viral illness, kratom induced pain and vomiting. Workup will be conducted with hematologic labs, specific imaging, provocative tests. Initial inventions include crystalloid bolus, analgesics, antibiotics. Initial workup reviewed by me hematologic labs are remarkable for white count of 11.9, BUN and creatinine were 15 and 0.5 troponins were both less than 0.01. Chest x-ray read by myself with negative for any acute findings read by radiology also negative for acute findings. Patient and I discussed following up with her PCP. Patient safe for discharge home.
--- OUTSIDE RECORDS SUMMARY | 2025-05-25 15:11 | XMS_ITS | Encounter Summary ---
Author Organization Healthcare Address [address] [place] [address] Care Team Providers Care Yarn Man Name Role Phone Ravi Izquierdo MD Primary Care Provider + [phone] Encounter Details Date Type Department Care Team (Latest Contact Info) Description 04/16/2025 Travel Social History Tobacco Use Types Packs/Day Years Used Date Smoking Tobacco: Never Comments Unknown Sex and Gender Information Value Date Recorded Sex Assigned at Not on file Legal Sex Female 8:39 PM EDT Gender Identity Not on file Sexual Orientation Not on file documented as of this encounter Plan of Treatment Upcoming Encounters Date Type Department Care Team (Late st Contact Info) Description 05/29/2025 10:45 AM EST Office Visit [facility] [facility] [address] [place] [address] Tori Harris MD [address] [address] 07/03/2025 1:00 PM EST Office Visit [facility] [address], [address] [place] [address] Tori Harris MD [address] [address] documented as of this encounter Visit Diagnoses Not on filedocumented in this encounter Additional Health Concerns Assessment Noted Time A fall risk assessment has been complete d for the patient 03/27/2025 9:32 AM EDT A Body Mass Index follow-up plan has been documented for the patient 04/16/2025 11:16 AM EDT documented as of this encounter Care Teams Yarn Man Relationship Specialty Start Date End Date Ravi Izquierdo MD [address] [place] [address] PCP - General 11/05/20 documented as of this encounter
--- OUTSIDE RECORDS SUMMARY | 2025-05-25 15:11 | XMS_ITS | Clinical Summary ---
Author Organization [facility] Address [address] [place] [address] Phone Care Team Providers Care Esthetician Spa Name Role Phone Ravi Izquierdo MD Primary Care Provider [phone] Social History Tobacco Use Types Packs/Day Years Used Date Smoking Tobacco: Never Assessed Comments Unknown Sex and Gender Information Value Date Recorded Sex Assigned at Not on file Legal Sex Female 10:55 AM EDT Gender Identity Not on file Sexual Orientation Not on file Plan of Treatment Health Maintenance Due Date Last Done Comments Annual Wellness Exam 1977 DTaP/TDaP/Td (1 - Tdap) 1993 Hepatitis B Vaccine (1 of 3 - 19+ 3-dose series) 1993 Cervical Cancer Screening 1995 Pap Smear 1995 HPV/Pap Cotest 2004 Breast Cancer Screening 2014 Cologuard 2019 Colon Cancer Screening 2019 Colonoscopy 2019 FIT 2019 Sigmoidoscopy 2019 Virtual Colonography 2019 Pneumococcal Vaccine 50+ (1 of 1 - PCV) 2024 Zoster (1 of 2) 2024 COVID-19 Vaccine ( - 2024-2 6 season) 2025 Influenza Vaccine (#1) 2025 Meningococcal B Vaccine Aged Out No l onger eligible based on patient's age to complete this topic Insurance [employer] PPO Care Teams Esthetician Spa Relationship Specialty Start Date End Date Ravi Izquierdo MD [address] [place] [address] [place] [address] PCP - General Family Medicine 02/09/17
--- OUTSIDE RECORDS SUMMARY | 2025-05-25 15:11 | XMS_ITS | Encounter Summary ---
Author Organization Healthcare Address [address] [place] [address] Care Team Providers Care Numerical Control Programmer Name Role Phone Ravi Izquierdo MD Primary Care Provider [phone] Encounter Details Date Type Department Care Team (Late st Contact Info) Description 05/19/2025 Telephone [facility] [place] [facility] [facility] [address] [place] [address] Tori Harris MD [address] [address] Social History Tobacco Use Types Packs/Day Years [...] EST Office Visit [facility] [facility] [address], [address] [place] [address] Tori Harris MD [address] [place] [address] 07/03/2025 1:00 PM EST Office Visit [facility] [facility] [address] [place] [address] Tori Harris MD [address] [address] documented as of this encounter Visit Diagnoses Not on filedocumented in this encounter Additional Health Concerns Assessment Noted Time A fall risk assessment has been complete d for the patient 05/08/2025 10:35 AM EST A Body Mass Index follow-up plan has been documented for the patient 05/19/2025 3:35 PM EST documented as of this encounter Care Teams Numerical Control Programmer Relationship Specialty Start Date End Date Ravi Izquierdo MD [address] [facility] [address] [place] [address] PCP - General 11/05/20 documented as of this encounter
--- OUTSIDE RECORDS SUMMARY | 2025-05-25 15:11 | XMS_ITS | Encounter Summary ---
Author Organization [facility] Address [address] [place] [address] Care Team Providers Care Briar Shop Supervisor Name Role Phone Ravi Izquierdo MD Primary Care Provider + [phone] Encounter Details Date Type Department Care Team (Late st Contact Info) Description 04/02/2025 Telephone [facility] [place] [address] [place] [address] Tori Harris MD [address] [address] Social History Tobacco Use Types Packs/Day Years Used Date Smoking Tobacco: Never Comments Unknown Sex and Gender Information Value Date Recorded Sex Assigned at Not on file Legal Sex Female 8:39 PM EDT Gender Identity Not on file Sexual Orientation Not on file documented as of this encounter Miscellaneous Notes * Telephone Encounter - Maranda Isidro - 04/02/2025 11:22 AM EDT Pt called and was wondering about surgery. She was here on the 27 of March, and was told she could have surgery in April. Could someone check on this, Please. #[phone] anytime documented in this encounter Plan of Treatment Upcoming Encounters Date Type Department Care Team (Late st Contact Info) Description 05/29/2025 10:45 AM EST Office Visit [facility] [place] [address] [place] [address] Tori Harris MD [address] [place] [address] 07/03/2025 1:00 PM EST Office Visit [facility] [place] [address] [place] [address] Tori Harris MD [address] [place] [address] documented as of this encounter Visit Diagnoses Not on filedocumented in this encounter Additional Health Concerns Assessment Noted Time A fall risk assessment has been complete d for the patient 03/27/2025 9:32 AM EDT A Body Mass Index follow-up plan has been documented for the patient 03/27/2025 10:10 AM EDT documented as of this encounter Care Teams Briar Shop Supervisor Relationship Specialty Start Date End Date Ravi Izquierdo MD [address] [address] PCP - General 11/05/20 documented as of this encounter
--- OUTSIDE RECORDS SUMMARY | 2025-05-25 15:11 | XMS_ITS | Clinical Summary ---
Author Organization Healthcare Address [address] [place] [address] Care Team Providers Care Grain Operator Name Role Phone Ravi Izquierdo MD Primary Care Provider + [phone] Allergies No known active allergies Medications moxifloxacin (Vigamox) 0.5 % ophthalmic solutionIndicat ions:Combined forms of age-related cataract of both eyes Administer 1 drop into the left eye 4 times a day for 7 days. 3 mL 5 04/29/20 25 prednisoLONE acetate (Pred-Forte) 1 % ophthalmic suspensionIndic ations:Combined forms of age-related cataract of both eyes Administer 1 drop into the left eye 4 times a day. 5 mL 1 5 05/19/20 25 Active Problems No known active problems Encounters Date Type Department Care Team Description 05/19/2025 2:45 PM EST Office Visit [facility] [place] [address] [place] [address] Tori Harris MD Pseudophakia (Primary Dx) 05/19/2025 Travel 05/19/2025 Telephone [facility] [place] [address] [place] [address] Tori Harris MD 05/08/2025 10:45 AM EST Office Visit [facility] [place] [address] [place] [address] Tori Harris MD Pseudophakia (Primary Dx) 05/08/2025 Travel 04/29/2025 3:00 PM EST Office Visit [facility] [address] [place] [address] Tori Harris MD Pseudophakia (Primary Dx) 04/29/2025 Travel 04/16/2025 10:30 AM EDT Consult [facility] [address] [place] [address] Tori Harris MD Cataract, unspecified cataract type, unspecified laterality (Primary Dx); Combined forms of age-related cataract of both eyes 04/16/2025 Travel 04/02/2025 Telephone [facility] [address], [address] [place] [address] Tori Harris MD 03/27/2025 9:30 AM EDT Office Visit [facility] [address], [address] [place] [address] Tori Harris MD Combined forms of age-related cataract of both eyes (Primary Dx) 03/27/2025 Travel from Last 3 Months Social History Tobacco Use Types Packs/Day Years Used Date Smoking Tobacco: Never Passive Smoke Exposure: Never Smokeless Tobacco: Never Tobacco Cessation:Counseling Given: Not Answered Comments Unknown Sex and Gender Information Value Date Recorded Sex Assigned at Not on file Legal Sex Female 8:39 PM EDT Gender Identity Not on file Sexual Orientation Not on file Last Filed Vital Signs Vital Sign Reading Time Taken Comments Blood Pressure - - Pulse - - Temperature - - Respiratory Rate - - Oxygen Saturation - - Inhaled Oxygen Concentration - - Weight 91 kg (200 lb 9.9 oz) 04/10/2017 12:25 PM EDT Height 167.6 cm (5' 6 ) 04/10/2017 12:25 PM EDT Body Mass Index 32.38 04/10/2017 12:25 PM EDT Plan of Treatment Upcoming Encounters Date Type Department Care Team (Late st Contact Info) Description 05/29/2025 10:45 AM EST Office Visit [facility] [place] [address] [place] [address] Tori Harris MD [address] [place] [address] 07/03/2025 1:00 PM EST Office Visit [facility] [place] [address] [place] [address] Tori Harris MD [address] [place] [address] Health Maintenance Due Date Last Done Comments [facility]-Depression Screening 1974 [facility]-HIV Screening 1974 [facility]-Hepatitis C Screening 1974 [facility]-/Child/Adol SDOH Screenings 1974 [facility]- SDOH Screenings 1992 [facility]-Adult SDOH Screenings 1992 [facility]-Hepatitis B Vaccines (1 of 3 - 19+ 3-dose series) 1993 [facility]-Pap Smear 1995 [facility]-Cervical Cancer Screening 2004 [facility]-HPV/Cotest 2004 CT Colonography 2019 Colonoscopy 2019 FIT-DNA 2019 FIT 2019 FOBT 2019 Sigmoidoscopy 2019 [facility]-Colorectal Cancer Screening 2019 [facility]-DTaP,Tdap,and Td Vaccine s (2 - Td or Tdap) 09/10/2023 09/09/2013 [facility]-Breast Cancer Screening 2024 [facility]-Pneumococcal Vaccine: 50 + Years (1 of 1 - PCV) 2024 [facility]-Zoster Vaccines (1 of 2) 2024 [id number] Vaccine (1 - 20 25-26 season) 2025 [facility]-Influenza Vaccine (#1) 2025 HPV Vaccines Aged Out No longer eligi ble based on patient's age to complete this topic [facility]-HIB Vaccines Aged Out No longer e ligible based on patient's age to complete this topic [facility]-Hepatitis A Vaccines Aged Out No longer eligible based on patient's age to complete this topic [facility]-IPV Vaccines Aged Out No longer e ligible based on patient's age to complete this topic [facility]-Rotavirus Vaccines Aged Out No lo nger eligible based on patient's age to complete this topic Procedures Procedure Name Priority Date/Time Associated Diagnosis Comments ULTRASOUND BIOMETRY W IOL KEVEN - OU - BOTH EYES Routine 04/16/2025 11:32 AM EDT Cataract, unspecified cataract type, unspecified laterality from Last 3 Months Results * Ultrasound Biometry w IOL Keven - OU - Both Eyes (04/16/2025 11:32 AM EDT) Anatomical Region Laterality Modality Head Other Narrative 04/16/2025 11:32 AM EDT Right Eye Lens style: DIB00. Lens power: 25.00. Left Eye Lens style: DIB00. Lens power: 24.50. Notes MA60AC 24.50 OD MA60AC 24.00 OS Tori Harris MD OPHTH ULTRASOUND Final Resul t from Last 3 Months Insurance [facility] MEDICAID [employer] MEDICAID REPLACEMENT [place] [id number] Care Teams Grain Operator Relationship Specialty Start Date End Date Ravi Izquierdo MD [facility] [place] [address] PCP - General 11/05/20
--- OUTSIDE RECORDS SUMMARY | 2025-05-25 15:11 | XMS_ITS | Encounter Summary ---
Author Organization Healthcare Address [address] [place] [address] Care Team Providers Care Teacher Assistant Name Role Phone Ravi Izquierdo MD Primary Care Provider + [phone] Encounter Details Date Type Department Care Team (Latest Contact Info) Description 05/08/2025 Travel Social History Tobacco Use Types Packs/Day [...] EST Office Visit [facility] [place] [address] [place] [address] Tori Harris MD [address] [address] 07/03/2025 1:00 PM EST Office Visit [facility] [place] [address] [place] [address] Tori Harris MD [address] [address] documented as of this encounter Visit Diagnoses Not on filedocumented in this encounter Additional Health Concerns Assessment Noted Time A fall risk assessment has been complete d for the patient 05/08/2025 10:35 AM EST A Body Mass Index follow-up plan has been documented for the patient 05/08/2025 11:10 AM EST documented as of this encounter Care Teams Teacher Assistant Relationship Specialty Start Date End Date Ravi Izquierdo MD [address] [place] [address] PCP - General 11/05/20 documented as of this encounter
--- OUTSIDE RECORDS SUMMARY | 2025-05-25 15:11 | XMS_ITS | Encounter Summary ---
Author Organization Healthcare Address [address] [place] [address] Care Team Providers Care Apprentice Machinist Outside Name Role Phone Ravi Izquierdo MD Primary Care Provider + [phone] Encounter Details Date Type Department Care Team (Latest Contact Info) Description 04/29/2025 Travel Social History Tobacco Use Types Packs/Day [...] EST Office Visit [facility] [place] [address] [place] [address] Tori Harris MD [address] [address] 07/03/2025 1:00 PM EST Office Visit [facility] [place] [address] [place] [address] Tori Harris MD [address] [address] documented as of this encounter Visit Diagnoses Not on filedocumented in this encounter Additional Health Concerns Assessment Noted Time A fall risk assessment has been complete d for the patient 03/27/2025 9:32 AM EDT A Body Mass Index follow-up plan has been documented for the patient 04/29/2025 3:20 PM EST documented as of this encounter Care Teams Apprentice Machinist Outside Relationship Specialty Start Date End Date Ravi Izquierdo MD [address] [place] [address] PCP - General 11/05/20 documented as of this encounter
--- OUTSIDE RECORDS SUMMARY | 2025-05-25 15:11 | XMS_ITS | Encounter Summary ---
Author Organization Healthcare Address [address] [place] [address] Care Team Providers Care Logging Tractor Operator Swamp Name Role Phone Ravi Izquierdo MD Primary Care Provider + [phone] Encounter Details Date Type Department Care Team (Latest Contact Info) Description 03/27/2025 Travel Social History Tobacco Use Types Packs/Day [...] EST Office Visit [facility] [place] [address] [place] [address] Tori Harris MD [address] [address] 07/03/2025 1:00 PM EST Office Visit [facility] [place] [address] [place] [address] Tori Harris MD [address] [address] documented as of this encounter Visit Diagnoses Not on filedocumented in this encounter Additional Health Concerns Assessment Noted Time A fall risk assessment has been complete d for the patient 03/27/2025 9:32 AM EDT A Body Mass Index follow-up plan has been documented for the patient 03/27/2025 10:10 AM EDT documented as of this encounter Care Teams Logging Tractor Operator Swamp Relationship Specialty Start Date End Date Ravi Izquierdo MD [address] [place] [address] PCP - General 11/05/20 documented as of this encounter
--- OUTSIDE RECORDS SUMMARY | 2025-05-25 15:11 | XMS_ITS | Encounter Summary ---
Author Organization Healthcare Address [address] [place] [address] Care Team Providers Care [facility] Worker Name Role Phone Ravi Izquierdo MD Primary Care Provider + [phone] Encounter Details Date Type Department Care Team (Latest Contact Info) Description 05/19/2025 Travel Social History Tobacco Use Types Packs/Day [...] EST Office Visit [facility] [address], [address] [place] [address] Tori Harris MD [address] [phone] 07/03/2025 1:00 PM EST Office Visit [facility] [address], [address] [place] [address] Tori Harris MD [address] [phone] documented as of this encounter Visit Diagnoses Not on filedocumented in this encounter Additional Health Concerns Assessment Noted Time A fall risk assessment has been complete d for the patient 05/08/2025 10:35 AM EST A Body Mass Index follow-up plan has been documented for the patient 05/19/2025 3:35 PM EST documented as of this encounter Care Teams [employer] Worker Relationship Specialty Start Date End Date Ravi Izquierdo MD [address] [place] [address] PCP - General 11/05/20 documented as of this encounter
[2025-05-25 15:13] LABS: Albumin Level 4.2 g/dl (3.5-5.0); Chloride 99 mmol/L (98-107); Potassium 3.7 mmoL/L (3.5-5.1); Sodium 139 mmol/L (136-145)
[2025-05-25 15:16] LABS: Alanine Aminotransferase 20 U/L (12-78); Albumin/Globulin Ratio 1.3 (1.1-1.8); Alkaline Phosphatase 82 U/L (38-126); Anion Gap 14.7 mEq/L (5-15); Aspartate Amino Transferase 25 U/L (14-36); Bilirubin,Total 0.7 mg/dl (0.2-1.3); Blood Urea Nitrogen 15 mg/dl (7-17); Calcium 9.1 mg/dl (8.4-10.2); Carbon Dioxide 29 mmol/L (22.0-30.0); Creatinine Clearance Estimated 129 mL/min (50-200); Creatinine,Serum 0.50 mg/dl (0.52-1.04); Estimated Glomerular Filt Rate 130 ml/min (>60); GFR (African American) 157 ML/MIN (>60); Globulin 3.2 g/dL (1.3-3.2); Glucose 293 mg/dl (74-100); Lipase 70 U/L (23-300); Total Protein,Serum 7.4 g/dl (6.3-8.2)
[2025-05-25 15:17] LABS: Magnesium 1.8 mg/dl (1.6-2.3)
[2025-05-25 15:29] LABS: Troponin I < 0.01 ng/ml (0.00-0.034)
[2025-05-25] MEDS: KETOROLAC 30MG/ML VIAL 30 MG IV (15:34)
[2025-05-25] MEDS: ASPIRIN 325MG TABLET 325 MG PO (15:34)
[2025-05-25] MEDS: ONDANSETRON 4MG/2ML VIAL 4 MG IV (15:34)
[2025-05-25] MEDS: 0.9 % SODIUM CHLORIDE 1000ML 1,000 ML 999 ML IV (15:36)
[2025-05-25 18:09] LABS: Troponin I < 0.01 ng/ml (0.00-0.034)
== END 2025-05-25 18:47 | disposition home or self-care (01) ==
PROVIDERS: Nurse Practitioner; Emergency Provider Student in an Organized Health Care Education/Training Program; PCP Physician Assistant
DX: R07.9 Chest pain, unspecified (principal); R11.2 Nausea with vomiting, unspecified; R73.9 Hyperglycemia, unspecified; Z87.891 Personal history of nicotine dependence
CPT/HCPCS: 71045; 80053; 83690; 83735; 84484; 85025; 93005; 96361; 96374; 96375; 99285; J1885; J2405; J7030